=== PATIENT | male | born 1985 | race Two or more races ===

== ENCOUNTER 2020-09-19 15:30 | Inpatient (IN) | payer OTHER ==
[~2020-09-19] VITALS: Ht 167.6 cm; Wt 131.1 kg
[2020-09-19 16:48] LABS: Alanine Aminotransferase 57 U/L (16-61); Albumin 3.2 g/dL (3.4-5.0); Anion Gap 4 (5-15); Aspartate Aminotransferase 59 U/L (15-37); BUN/Creatinine Ratio 5.6; Blood Urea Nitrogen 5 mg/dL (7-18); Calcium 8.3 mg/dL (8.5-10.1); Carbon Dioxide 28 mmol/L (21-32); Chloride 106 mmol/L (98-107); GFR African American 123 mL/min; GFR Non-African American 101 mL/min; Glucose 128 mg/dL (74-106); Potassium 3.2 mmol/L (3.5-5.1); Sodium 138 mmol/L (136-145)
[2020-09-19 16:53] LABS: Alkaline Phosphatase 92 U/L (45-117); Bilirubin, Total 0.4 mg/dL (0.2-1.0); Lactic Acid w/Reflex 2.4 mmol/L (0.4-2.0); Total Protein 7.2 g/dL (6.4-8.2)
[2020-09-19 18:20] LABS: Basophils # (auto) 0 10 ^3/uL (0-0.2); Basophils % (auto) 0.7 % (0.0-2.0); Eosinophils # (auto) 0 10 ^3/uL (0-0.8); Hematocrit 42.1 % (41.0-53.0); Hemoglobin 14.5 g/dL (13.5-17.5); Lymphocytes # (auto) 0.8 10 ^3/uL (0.4-5.4); Lymphocytes % (auto) 17.5 % (10.0-50.0); Mean Corpuscular Hemoglobin 31.1 pg (28.0-32.0); Mean Corpuscular Hgb Conc. 34.6 g/dL (32.0-36.0); Mean Corpuscular Volume 89.9 fL (80.0-100.0); Monocytes # (auto) 0.4 10 ^3/uL (0-1.3); Monocytes % (auto) 7.8 % (0.0-12.0); Neutrophils # (auto) 3.4 10 ^3/uL (1.6-8.6); Nucleated Red Blood Cells % 0.1 %; Platelet Count (auto) 173 10^3/uL (140-450); Red Blood Cells 4.68 10^6/uL (4.5-5.90); Red Cell Distribution Width 14.2 % (11.8-14.3); White Blood Cell 4.6 10^3/uL (4.4-10.8)
[2020-09-19] MEDS ORDERED: AZITHROMYCIN 500MG/ 250ML 250 ML IV ONE (19:30)
[2020-09-19] MEDS ORDERED: DexAMETHasone SOD PHOS 10MG/1ML VIAL INJ IV ONE (19:30)
[2020-09-19] MEDS ORDERED: ACETAMINOPHEN 325 MG TAB PO ONE (19:30)
[2020-09-19] MEDS ORDERED: POTASSIUM CHL 20 Meq TABLET PO ONE (19:45)
[2020-09-20] MEDS ORDERED: NITROGLYCERIN 0.4 MG SL TAB SL PRN (00:15)
[2020-09-20] MEDS: HYDROcodone-ACET 5/325MG TAB PO PRN ×2 (04:37→13:30)
[2020-09-20] MEDS: SODIUM CHLOR 0.9% PF (SALINE LOCK) 10ML VIAL/SYR IV SCH ×2 (06:00→14:10)
[2020-09-20] MEDS: BUDESONIDE (INHALATION) 180 MCG IH IN SCH ×2 (09:43→19:51)
[2020-09-20] MEDS: ZINC SULFATE 220mg CAP or TAB PO SCH (10:23)
[2020-09-20] MEDS: ENOXAPARIN SOD 40 MG/0.4 ML SYRINGE SC SCH (10:23)
[2020-09-20] MEDS: ASCORBIC ACID 1,000 MG TAB PO SCH (10:23)
[2020-09-20] MEDS: MULTIPLE VITAMIN TAB PO SCH (10:23)
[2020-09-20] MEDS: CHOLECALCIFEROL (VITD3) 2,000 UNIT CAP/TAB PO SCH (10:23)
[2020-09-20] MEDS: DexAMETHasone SOD PHOS 10MG/1ML VIAL INJ IV SCH (10:23)
[2020-09-20] MEDS: DOXYCYCLINE 100MG/250ML 250 ML IV SCH (10:23)
[2020-09-20] MEDS ORDERED: diphenhdrAMINE HCL 50 MG/1 ML VL IV PRN (12:00)
[2020-09-20] MEDS ORDERED: FUROSEMIDE 40 MG/4 ML VIAL IV ONE (12:00)
[2020-09-20] MEDS ORDERED: POTASSIUM CHL 20 Meq TABLET PO ONE (12:00)
[2020-09-20] MEDS ORDERED: REMDESIVIR PER PHARMACY 0 ML IV SCH (12:00)
[2020-09-20] MEDS ORDERED: REMDESIVIR 200 MG in NS 210ml LOADING DOSE ADULT IV ONE (15:00)
[2020-09-20] MEDS ORDERED: ACETAMINOPHEN 650 mg PER 20.3 mL UD PO ONE (18:30)
[2020-09-20] MEDS ORDERED: methylPREDNISolone SOD SUCC 40 MG/ML VL IV ONE (18:30)
[2020-09-20] MEDS ORDERED: diphenhdrAMINE HCL 50 MG/1 ML VL IV ONE (18:30)
[2020-09-20] MEDS ORDERED: TOCILIZUMAB 400 MG in SODIUM CHL 0.9% 80 ML IV ONE (19:00)
[2020-09-21] MEDS: SODIUM CHLOR 0.9% PF (SALINE LOCK) 10ML VIAL/SYR IV SCH ×4 (00:12→22:57)
[2020-09-21] MEDS: HYDROcodone-ACET 5/325MG TAB PO PRN ×3 (00:12→22:58)
[2020-09-21] MEDS: ENOXAPARIN SOD 40 MG/0.4 ML SYRINGE SC SCH ×3 (00:12→21:57)
[2020-09-21] MEDS: DOXYCYCLINE 100MG/250ML 250 ML IV SCH ×3 (00:12→22:57)
[2020-09-21 07:39] LABS: Basophils # (auto) 0 10 ^3/uL (0-0.2); Basophils % (auto) 0.1 % (0.0-2.0); Eosinophils # (auto) 0 10 ^3/uL (0-0.8); Hemoglobin 14.7 g/dL (13.5-17.5); Lymphocytes # (auto) 0.8 10 ^3/uL (0.4-5.4); Lymphocytes % (auto) 19.1 % (10.0-50.0); Mean Corpuscular Hemoglobin 30.5 pg (28.0-32.0); Mean Corpuscular Hgb Conc. 34.1 g/dL (32.0-36.0); Mean Corpuscular Volume 89.4 fL (80.0-100.0); Monocytes # (auto) 0.7 10 ^3/uL (0-1.3); Monocytes % (auto) 15.9 % (0.0-12.0); Neutrophils # (auto) 2.9 10 ^3/uL (1.6-8.6); Neutrophils % (auto) 64.9 % (37.0-80.0); Nucleated Red Blood Cells % 0.1 %; Platelet Count (auto) 262 10^3/uL (140-450); Red Cell Distribution Width 14.1 % (11.8-14.3); White Blood Cell 4.4 10^3/uL (4.4-10.8)
[2020-09-21 08:01] LABS: Potassium 3.7 mmol/L (3.5-5.1)
[2020-09-21 08:08] LABS: BUN/Creatinine Ratio 14.6; Calcium 8.7 mg/dL (8.5-10.1)
[2020-09-21 08:11] LABS: Bilirubin, Total 0.5 mg/dL (0.2-1.0); Total Protein 7.4 g/dL (6.4-8.2)
[2020-09-21] MEDS: MULTIPLE VITAMIN TAB PO SCH (08:40)
[2020-09-21] MEDS: DexAMETHasone SOD PHOS 10MG/1ML VIAL INJ IV SCH (08:40)
[2020-09-21] MEDS: ZINC SULFATE 220mg CAP or TAB PO SCH (08:40)
[2020-09-21] MEDS: CHOLECALCIFEROL (VITD3) 2,000 UNIT CAP/TAB PO SCH (08:41)
[2020-09-21] MEDS: ASCORBIC ACID 1,000 MG TAB PO SCH (08:41)
[2020-09-21] MEDS: FUROSEMIDE 40 MG/4 ML VIAL IV SCH (09:52)
[2020-09-21] MEDS: POTASSIUM CHL 10 Meq TABLET PO SCH (09:52)
[2020-09-21] MEDS ORDERED: diphenhdrAMINE HCL 50 MG/1 ML VL IV ONE ×2 (10:00→20:00)
[2020-09-21] MEDS: BUDESONIDE (INHALATION) 180 MCG IH IN SCH ×2 (10:00→22:00)
[2020-09-21] MEDS ORDERED: ACETAMINOPHEN 650 mg PER 20.3 mL UD PO ONE ×2 (10:00→20:00)
[2020-09-21] MEDS ORDERED: methylPREDNISolone SOD SUCC 40 MG/ML VL IV ONE ×2 (10:00→20:00)
[2020-09-21] MEDS ORDERED: TOCILIZUMAB 400 MG in SODIUM CHL 0.9% 80 ML IV ONE ×2 (10:30→20:30)
[2020-09-21 16:00] VITALS: BP 114/75
[2020-09-21] MEDS: REMDESIVIR 100 MG in SODIUM CHL 0.9% 250 ML IV SCH (16:56)
[2020-09-22] VITALS: BP 132/79
[2020-09-22] MEDS: ALBUTEROL SULF HFA 90MCG INH 200DOSE IN PRN ×3 (01:28→19:30)
[2020-09-22] MEDS ORDERED: LORazepam 0.5 MG TAB PO PRN (06:30)
[2020-09-22] MEDS: SODIUM CHLOR 0.9% PF (SALINE LOCK) 10ML VIAL/SYR IV SCH ×3 (06:54→21:34)
[2020-09-22] MEDS: HYDROcodone-ACET 5/325MG TAB PO PRN ×4 (07:33→21:35)
[2020-09-22 08:00] VITALS: BP 145/87
[2020-09-22] MEDS: BUDESONIDE (INHALATION) 180 MCG IH IN SCH ×2 (08:10→18:30)
[2020-09-22 08:13] LABS: Albumin 2.9 g/dL (3.4-5.0); Calcium 8.4 mg/dL (8.5-10.1); Potassium 3.5 mmol/L (3.5-5.1)
[2020-09-22 08:17] LABS: BUN/Creatinine Ratio 16.9; Bilirubin, Total 0.5 mg/dL (0.2-1.0); Total Protein 7.2 g/dL (6.4-8.2)
[2020-09-22] MEDS: DexAMETHasone SOD PHOS 10MG/1ML VIAL INJ IV SCH (09:51)
[2020-09-22] MEDS: CHOLECALCIFEROL (VITD3) 2,000 UNIT CAP/TAB PO SCH (09:52)
[2020-09-22] MEDS: POTASSIUM CHL 10 Meq TABLET PO SCH (09:52)
[2020-09-22] MEDS: ENOXAPARIN SOD 40 MG/0.4 ML SYRINGE SC SCH ×2 (09:52→21:34)
[2020-09-22] MEDS: DOXYCYCLINE 100MG/250ML 250 ML IV SCH ×2 (09:52→21:34)
[2020-09-22] MEDS: FUROSEMIDE 40 MG/4 ML VIAL IV SCH (09:52)
[2020-09-22] MEDS: MULTIPLE VITAMIN TAB PO SCH (09:52)
[2020-09-22] MEDS: ASCORBIC ACID 1,000 MG TAB PO SCH (09:52)
[2020-09-22] MEDS: ZINC SULFATE 220mg CAP or TAB PO SCH (09:52)
[2020-09-22 16:14] VITALS: BP 141/89
[2020-09-22] MEDS: REMDESIVIR 100 MG in SODIUM CHL 0.9% 250 ML IV SCH (16:35)
[2020-09-22 17:21] VITALS: BP 135/78
[2020-09-23] VITALS (8 sets, daily range): BP systolic 107–157; BP diastolic 69–95
[2020-09-23] MEDS: HYDROcodone-ACET 5/325MG TAB PO PRN ×6 (01:40→21:09)
[2020-09-23] MEDS: SODIUM CHLOR 0.9% PF (SALINE LOCK) 10ML VIAL/SYR IV SCH ×3 (05:25→21:14)
[2020-09-23] MEDS: ALBUTEROL SULF HFA 90MCG INH 200DOSE IN PRN ×2 (06:55→20:15)
[2020-09-23] MEDS: BUDESONIDE (INHALATION) 180 MCG IH IN SCH ×2 (06:55→20:14)
[2020-09-23 08:48] LABS: Potassium 3.3 mmol/L (3.5-5.1)
[2020-09-23 09:00] LABS: BUN/Creatinine Ratio 21.7; Bilirubin, Total 0.6 mg/dL (0.2-1.0); CRP High Sensitivity 2.16 mg/dL (< 0.3); Calcium 8.5 mg/dL (8.5-10.1); Total Protein 6.9 g/dL (6.4-8.2)
[2020-09-23] MEDS: FUROSEMIDE 40 MG/4 ML VIAL IV SCH (09:18)
[2020-09-23] MEDS: DOXYCYCLINE 100MG/250ML 250 ML IV SCH ×2 (09:18→21:08)
[2020-09-23] MEDS: DexAMETHasone SOD PHOS 10MG/1ML VIAL INJ IV SCH (09:18)
[2020-09-23] MEDS: MULTIPLE VITAMIN TAB PO SCH (09:21)
[2020-09-23] MEDS: ASCORBIC ACID 1,000 MG TAB PO SCH (09:21)
[2020-09-23] MEDS: POTASSIUM CHL 10 Meq TABLET PO SCH (09:21)
[2020-09-23] MEDS: ZINC SULFATE 220mg CAP or TAB PO SCH (09:21)
[2020-09-23] MEDS: ENOXAPARIN SOD 40 MG/0.4 ML SYRINGE SC SCH ×2 (09:22→21:09)
[2020-09-23] MEDS: CHOLECALCIFEROL (VITD3) 2,000 UNIT CAP/TAB PO SCH (09:22)
[2020-09-23] MEDS ORDERED: POTASSIUM CHL 10 Meq TABLET PO ONE (11:15)
[2020-09-23] MEDS: REMDESIVIR 100 MG in SODIUM CHL 0.9% 250 ML IV SCH (15:25)
[2020-09-24] VITALS: BP 127/81
[2020-09-24] MEDS: HYDROcodone-ACET 5/325MG TAB PO PRN ×6 (01:10→21:05)
[2020-09-24] MEDS: guaiFENesin-DM 100/10mg/5ml SYR PO PRN ×4 (03:00→23:03)
[2020-09-24] MEDS: SODIUM CHLOR 0.9% PF (SALINE LOCK) 10ML VIAL/SYR IV SCH ×3 (06:00→22:23)
[2020-09-24] MEDS: ALBUTEROL SULF HFA 90MCG INH 200DOSE IN PRN ×2 (06:12→20:18)
[2020-09-24] MEDS: BUDESONIDE (INHALATION) 180 MCG IH IN SCH ×2 (06:12→20:18)
[2020-09-24 07:23] LABS: Basophils # (auto) 0 10 ^3/uL (0-0.2); Basophils % (auto) 0.1 % (0.0-2.0); Eosinophils # (auto) 0 10 ^3/uL (0-0.8); Eosinophils % (auto) 0.1 % (0.0-7.0); Hemoglobin 14.4 g/dL (13.5-17.5); Lymphocytes # (auto) 2.5 10 ^3/uL (0.4-5.4); Lymphocytes % (auto) 24.6 % (10.0-50.0); Mean Corpuscular Hemoglobin 30.4 pg (28.0-32.0); Mean Corpuscular Hgb Conc. 34.3 g/dL (32.0-36.0); Mean Corpuscular Volume 88.6 fL (80.0-100.0); Monocytes # (auto) 1.4 10 ^3/uL (0-1.3); Monocytes % (auto) 14.1 % (0.0-12.0); Neutrophils # (auto) 6.1 10 ^3/uL (1.6-8.6); Neutrophils % (auto) 61.1 % (37.0-80.0); Nucleated Red Blood Cells % 0.1 %; Platelet Count (auto) 424 10^3/uL (140-450); Red Blood Cells 4.74 10^6/uL (4.5-5.90); Red Cell Distribution Width 13.8 % (11.8-14.3)
[2020-09-24 08:00] VITALS: BP 148/68
[2020-09-24 08:20] LABS: Albumin 3.2 g/dL (3.4-5.0); BUN/Creatinine Ratio 23.1; Bilirubin, Total 0.6 mg/dL (0.2-1.0); CRP High Sensitivity 1.15 mg/dL (< 0.3); Calcium 8.4 mg/dL (8.5-10.1); Potassium 3.3 mmol/L (3.5-5.1); Total Protein 6.8 g/dL (6.4-8.2)
[2020-09-24] MEDS: ENOXAPARIN SOD 40 MG/0.4 ML SYRINGE SC SCH ×2 (09:06→22:23)
[2020-09-24] MEDS: DexAMETHasone SOD PHOS 10MG/1ML VIAL INJ IV SCH (09:06)
[2020-09-24] MEDS: MULTIPLE VITAMIN TAB PO SCH (09:07)
[2020-09-24] MEDS: CHOLECALCIFEROL (VITD3) 2,000 UNIT CAP/TAB PO SCH (09:07)
[2020-09-24] MEDS: ZINC SULFATE 220mg CAP or TAB PO SCH (09:07)
[2020-09-24] MEDS: ASCORBIC ACID 1,000 MG TAB PO SCH (09:08)
[2020-09-24] MEDS: FUROSEMIDE 40 MG/4 ML VIAL IV SCH (09:09)
[2020-09-24] MEDS: DOXYCYCLINE 100MG/250ML 250 ML IV SCH ×2 (09:15→22:24)
[2020-09-24] MEDS ORDERED: POTASSIUM CHL 10 Meq TABLET PO SCH (10:00)
[2020-09-24] MEDS: POTASSIUM CHL 10 Meq TABLET PO SCH ×2 (12:36→22:23)
[2020-09-24] MEDS: REMDESIVIR 100 MG in SODIUM CHL 0.9% 250 ML IV SCH (15:54)
[2020-09-24 16:00] VITALS: BP 153/76
[2020-09-25] VITALS: BP 110/66
[2020-09-25] MEDS: HYDROcodone-ACET 5/325MG TAB PO PRN ×6 (01:07→21:38)
[2020-09-25] MEDS: ACETAMINOPHEN 500 MG TAB PO PRN ×2 (03:54→23:16)
[2020-09-25] MEDS: guaiFENesin-DM 100/10mg/5ml SYR PO PRN ×2 (05:35→13:27)
[2020-09-25] MEDS: SODIUM CHLOR 0.9% PF (SALINE LOCK) 10ML VIAL/SYR IV SCH ×3 (05:35→21:36)
[2020-09-25] MEDS: BUDESONIDE (INHALATION) 180 MCG IH IN SCH ×2 (06:50→07:50)
[2020-09-25 08:00] VITALS: BP 120/60
[2020-09-25] MEDS: ENOXAPARIN SOD 40 MG/0.4 ML SYRINGE SC SCH ×2 (09:07→21:37)
[2020-09-25] MEDS: ZINC SULFATE 220mg CAP or TAB PO SCH (09:08)
[2020-09-25] MEDS: MULTIPLE VITAMIN TAB PO SCH (09:08)
[2020-09-25] MEDS: ASCORBIC ACID 1,000 MG TAB PO SCH (09:08)
[2020-09-25] MEDS: DexAMETHasone SOD PHOS 10MG/1ML VIAL INJ IV SCH (09:08)
[2020-09-25] MEDS: POTASSIUM CHL 10 Meq TABLET PO SCH ×2 (09:08→21:37)
[2020-09-25] MEDS: FUROSEMIDE 40 MG/4 ML VIAL IV SCH (09:09)
[2020-09-25] MEDS: CHOLECALCIFEROL (VITD3) 2,000 UNIT CAP/TAB PO SCH (09:10)
[2020-09-25 16:00] VITALS: BP 113/63
[2020-09-25] MEDS ORDERED: FUROSEMIDE 40 MG/4 ML VIAL IV ONE (16:00)
[2020-09-25] MEDS: LORazepam 0.5 MG TAB PO PRN (20:24)
[2020-09-26] VITALS: BP 140/88
[2020-09-26] MEDS: MORPHINE SULF INJ 2 MG/ML SYRINGE 1ML IV PRN ×5 (01:20→20:08)
[2020-09-26] MEDS: HYDROcodone-ACET 5/325MG TAB PO PRN ×3 (03:33→21:32)
[2020-09-26] MEDS: SODIUM CHLOR 0.9% PF (SALINE LOCK) 10ML VIAL/SYR IV SCH ×3 (05:52→21:02)
[2020-09-26] MEDS: guaiFENesin-DM 100/10mg/5ml SYR PO PRN ×2 (06:15→14:11)
[2020-09-26 07:52] LABS: Basophils # (auto) 0 10 ^3/uL (0-0.2); Basophils % (auto) 0.2 % (0.0-2.0); Eosinophils # (auto) 0.2 10 ^3/uL (0-0.8); Eosinophils % (auto) 1.5 % (0.0-7.0); Hematocrit 42.6 % (41.0-53.0); Hemoglobin 14.8 g/dL (13.5-17.5); Lymphocytes # (auto) 1.4 10 ^3/uL (0.4-5.4); Mean Corpuscular Hemoglobin 30.9 pg (28.0-32.0); Mean Corpuscular Hgb Conc. 34.7 g/dL (32.0-36.0); Mean Corpuscular Volume 88.9 fL (80.0-100.0); Monocytes # (auto) 1.1 10 ^3/uL (0-1.3); Monocytes % (auto) 11.1 % (0.0-12.0); Neutrophils # (auto) 7.2 10 ^3/uL (1.6-8.6); Neutrophils % (auto) 73.2 % (37.0-80.0); Nucleated Red Blood Cells % 0.1 %; Platelet Count (auto) 449 10^3/uL (140-450); Red Blood Cells 4.79 10^6/uL (4.5-5.90); Red Cell Distribution Width 14.2 % (11.8-14.3); White Blood Cell 9.8 10^3/uL (4.4-10.8)
[2020-09-26 08:00] VITALS: BP 118/76
[2020-09-26] MEDS: BUDESONIDE (INHALATION) 180 MCG IH IN SCH ×2 (08:00→19:22)
[2020-09-26 08:03] LABS: Albumin 3.4 g/dL (3.4-5.0); Calcium 8.7 mg/dL (8.5-10.1); Potassium 3.9 mmol/L (3.5-5.1)
[2020-09-26 08:06] LABS: Bilirubin, Total 0.6 mg/dL (0.2-1.0); Total Protein 6.9 g/dL (6.4-8.2)
[2020-09-26] MEDS: ENOXAPARIN SOD 40 MG/0.4 ML SYRINGE SC SCH ×2 (09:02→21:31)
[2020-09-26] MEDS: DexAMETHasone SOD PHOS 10MG/1ML VIAL INJ IV SCH (09:02)
[2020-09-26] MEDS: POTASSIUM CHL 10 Meq TABLET PO SCH ×2 (09:03→21:31)
[2020-09-26] MEDS: FUROSEMIDE 40 MG/4 ML VIAL IV SCH (09:03)
[2020-09-26] MEDS: MULTIPLE VITAMIN TAB PO SCH (09:04)
[2020-09-26] MEDS: ASCORBIC ACID 1,000 MG TAB PO SCH (09:04)
[2020-09-26] MEDS: CHOLECALCIFEROL (VITD3) 2,000 UNIT CAP/TAB PO SCH (09:04)
[2020-09-26] MEDS: ZINC SULFATE 220mg CAP or TAB PO SCH (09:04)
[2020-09-26 16:00] VITALS: BP 121/68
[2020-09-26] MEDS ORDERED: BACLOFEN 10 MG TAB PO ONE (17:15)
[2020-09-26] MEDS: ALBUTEROL SULF HFA 90MCG INH 200DOSE IN PRN (19:20)
[2020-09-27] VITALS: BP 97/60
[2020-09-27] MEDS: MORPHINE SULF INJ 2 MG/ML SYRINGE 1ML IV PRN ×4 (00:17→19:45)
[2020-09-27] MEDS: HYDROcodone-ACET 5/325MG TAB PO PRN ×2 (02:14→16:29)
[2020-09-27] MEDS: SODIUM CHLOR 0.9% PF (SALINE LOCK) 10ML VIAL/SYR IV SCH ×3 (05:18→21:06)
[2020-09-27] MEDS: ALBUTEROL SULF HFA 90MCG INH 200DOSE IN PRN ×2 (06:40→18:30)
[2020-09-27] MEDS: BUDESONIDE (INHALATION) 180 MCG IH IN SCH ×2 (06:40→18:30)
[2020-09-27 08:00] VITALS: BP 133/8
[2020-09-27] MEDS: LORazepam 0.5 MG TAB PO PRN (08:03)
[2020-09-27] MEDS: DexAMETHasone SOD PHOS 10MG/1ML VIAL INJ IV SCH (10:30)
[2020-09-27] MEDS: ASCORBIC ACID 1,000 MG TAB PO SCH (10:30)
[2020-09-27] MEDS: POTASSIUM CHL 10 Meq TABLET PO SCH (10:31)
[2020-09-27] MEDS: MULTIPLE VITAMIN TAB PO SCH (10:31)
[2020-09-27] MEDS: ZINC SULFATE 220mg CAP or TAB PO SCH (10:31)
[2020-09-27] MEDS: FUROSEMIDE 40 MG/4 ML VIAL IV SCH (10:32)
[2020-09-27] MEDS: ENOXAPARIN SOD 40 MG/0.4 ML SYRINGE SC SCH ×2 (10:32→21:15)
[2020-09-27] MEDS: CHOLECALCIFEROL (VITD3) 2,000 UNIT CAP/TAB PO SCH (10:32)
[2020-09-27] MEDS: BACLOFEN 10 MG TAB PO PRN (10:41)
[2020-09-27 15:54] VITALS: BP 136/81
[2020-09-27] MEDS: POTASSIUM CHL 20 Meq TABLET PO SCH (21:15)
[2020-09-27] MEDS: LORazepam 2MG/ML-1ML VIAL IV PRN (21:52)
[2020-09-28] VITALS: BP 122/51
[2020-09-28] MEDS: MORPHINE SULF INJ 2 MG/ML SYRINGE 1ML IV PRN ×4 (00:59→19:53)
[2020-09-28] MEDS: LORazepam 0.5 MG TAB PO PRN ×2 (02:20→23:19)
[2020-09-28] MEDS: HYDROcodone-ACET 5/325MG TAB PO PRN ×3 (05:19→16:29)
[2020-09-28] MEDS: SODIUM CHLOR 0.9% PF (SALINE LOCK) 10ML VIAL/SYR IV SCH ×3 (05:20→19:55)
[2020-09-28 07:31] LABS: Eosinophils # (auto) 0.3 10 ^3/uL (0-0.8); Monocytes # (auto) 1.2 10 ^3/uL (0-1.3); Neutrophils # (auto) 8.1 10 ^3/uL (1.6-8.6); Nucleated Red Blood Cells % 0.1 %; Red Cell Distribution Width 14.3 % (11.8-14.3)
[2020-09-28 07:34] LABS: Basophils # (auto) 0 10 ^3/uL (0-0.2); Basophils % (auto) 0.2 % (0.0-2.0); Eosinophils % (auto) 2.6 % (0.0-7.0); Hematocrit 42.8 % (41.0-53.0); Hemoglobin 14.4 g/dL (13.5-17.5); Lymphocytes # (auto) 1.5 10 ^3/uL (0.4-5.4); Lymphocytes % (auto) 13.3 % (10.0-50.0); Mean Corpuscular Hemoglobin 30.1 pg (28.0-32.0); Mean Corpuscular Hgb Conc. 33.7 g/dL (32.0-36.0); Mean Corpuscular Volume 89.3 fL (80.0-100.0); Neutrophils % (auto) 72.9 % (37.0-80.0); Red Blood Cells 4.79 10^6/uL (4.5-5.90); White Blood Cell 11.1 10^3/uL (4.4-10.8)
[2020-09-28 07:45] LABS: INR 1.07 (0.9-1.15); Partial Thromboplastin Time 25.4 sec (23.0-31.2)
[2020-09-28 07:56] LABS: Albumin 3.6 g/dL (3.4-5.0); Calcium 8.9 mg/dL (8.5-10.1); Magnesium 2.5 mg/dL (1.6-2.6)
[2020-09-28 08:00] VITALS: BP 105/70
[2020-09-28 08:16] LABS: BUN/Creatinine Ratio 27.8; Bilirubin, Total 0.7 mg/dL (0.2-1.0); Total Protein 6.9 g/dL (6.4-8.2)
[2020-09-28 08:22] LABS: Platelet Count (auto) 459 10^3/uL (140-450)
[2020-09-28] MEDS: ENOXAPARIN SOD 40 MG/0.4 ML SYRINGE SC SCH ×2 (08:50→19:52)
[2020-09-28] MEDS: ZINC SULFATE 220mg CAP or TAB PO SCH (08:50)
[2020-09-28] MEDS: ASCORBIC ACID 1,000 MG TAB PO SCH (08:50)
[2020-09-28] MEDS: POTASSIUM CHL 20 Meq TABLET PO SCH ×2 (08:50→19:52)
[2020-09-28] MEDS: DexAMETHasone SOD PHOS 10MG/1ML VIAL INJ IV SCH (08:51)
[2020-09-28] MEDS: CHOLECALCIFEROL (VITD3) 2,000 UNIT CAP/TAB PO SCH (08:51)
[2020-09-28] MEDS: MULTIPLE VITAMIN TAB PO SCH (08:51)
[2020-09-28] MEDS: FUROSEMIDE 40 MG/4 ML VIAL IV SCH (09:01)
[2020-09-28] MEDS: BUDESONIDE (INHALATION) 180 MCG IH IN SCH ×3 (09:43→19:26)
[2020-09-28] MEDS: ALBUTEROL SULF HFA 90MCG INH 200DOSE IN PRN ×2 (13:16→19:25)
[2020-09-28 16:00] VITALS: BP 146/74
[2020-09-28] MEDS: guaiFENesin-DM 100/10mg/5ml SYR PO PRN (16:41)
[2020-09-28 19:26] VITALS: BP 146/74
[2020-09-29] VITALS: BP 133/68
[2020-09-29] MEDS: MORPHINE SULF INJ 2 MG/ML SYRINGE 1ML IV PRN ×4 (00:08→22:09)
[2020-09-29 02:40] VITALS: BP 133/68
[2020-09-29] MEDS: HYDROcodone-ACET 5/325MG TAB PO PRN ×3 (02:53→19:44)
[2020-09-29] MEDS: SODIUM CHLOR 0.9% PF (SALINE LOCK) 10ML VIAL/SYR IV SCH ×3 (04:42→22:06)
[2020-09-29] MEDS: BUDESONIDE (INHALATION) 180 MCG IH IN SCH ×2 (07:28→20:57)
[2020-09-29] MEDS: ALBUTEROL SULF HFA 90MCG INH 200DOSE IN PRN ×2 (07:28→20:57)
[2020-09-29 08:00] VITALS: BP 128/70
[2020-09-29] MEDS: FUROSEMIDE 40 MG/4 ML VIAL IV SCH (08:23)
[2020-09-29] MEDS: CHOLECALCIFEROL (VITD3) 2,000 UNIT CAP/TAB PO SCH (08:23)
[2020-09-29] MEDS: MULTIPLE VITAMIN TAB PO SCH (08:23)
[2020-09-29] MEDS: ENOXAPARIN SOD 40 MG/0.4 ML SYRINGE SC SCH ×2 (08:23→22:09)
[2020-09-29] MEDS: ZINC SULFATE 220mg CAP or TAB PO SCH (08:23)
[2020-09-29] MEDS: POTASSIUM CHL 20 Meq TABLET PO SCH ×2 (08:23→22:09)
[2020-09-29] MEDS: ASCORBIC ACID 1,000 MG TAB PO SCH (08:23)
[2020-09-29] MEDS: DexAMETHasone SOD PHOS 10MG/1ML VIAL INJ IV SCH (08:23)
[2020-09-29 16:00] VITALS: BP 108/68
[2020-09-29] MEDS: DOCUSATE SOD 100 MG CAP PO PRN (16:59)
[2020-09-30 00:20] VITALS: BP 127/66
[2020-09-30] MEDS: MORPHINE SULF INJ 2 MG/ML SYRINGE 1ML IV PRN ×3 (02:34→20:59)
[2020-09-30] MEDS: guaiFENesin-DM 100/10mg/5ml SYR PO PRN (02:35)
[2020-09-30] MEDS: SODIUM CHLOR 0.9% PF (SALINE LOCK) 10ML VIAL/SYR IV SCH ×3 (06:00→21:59)
[2020-09-30] MEDS: ALBUTEROL SULF HFA 90MCG INH 200DOSE IN PRN (06:43)
[2020-09-30] MEDS: BUDESONIDE (INHALATION) 180 MCG IH IN SCH ×2 (06:43→21:07)
[2020-09-30 08:00] VITALS: BP 107/54
[2020-09-30] MEDS: MULTIPLE VITAMIN TAB PO SCH (08:30)
[2020-09-30] MEDS: ASCORBIC ACID 1,000 MG TAB PO SCH (08:30)
[2020-09-30] MEDS: ZINC SULFATE 220mg CAP or TAB PO SCH (08:31)
[2020-09-30] MEDS: CHOLECALCIFEROL (VITD3) 2,000 UNIT CAP/TAB PO SCH (08:31)
[2020-09-30] MEDS: ENOXAPARIN SOD 40 MG/0.4 ML SYRINGE SC SCH ×2 (08:31→21:59)
[2020-09-30] MEDS: DOCUSATE SOD 100 MG CAP PO PRN (08:31)
[2020-09-30] MEDS: DexAMETHasone SOD PHOS 10MG/1ML VIAL INJ IV SCH (08:31)
[2020-09-30] MEDS: POTASSIUM CHL 20 Meq TABLET PO SCH (08:31)
[2020-09-30] MEDS ORDERED: LACTULOSE 20Gm/30ML SOLN PO ONE (15:15)
[2020-09-30] MEDS: guaiFENesin 200 MG/10 ML UD PO PRN ×2 (15:27→22:00)
[2020-09-30 15:57] VITALS: BP 118/72
[2020-09-30] MEDS: LACTULOSE 20Gm/30ML SOLN PO SCH (21:59)
[2020-09-30] MEDS: BACLOFEN 10 MG TAB PO PRN (23:00)
[2020-10-01] VITALS: BP 137/83
[2020-10-01] MEDS: MORPHINE SULF INJ 2 MG/ML SYRINGE 1ML IV PRN ×4 (01:08→18:25)
[2020-10-01] MEDS: guaiFENesin 200 MG/10 ML UD PO PRN ×3 (03:09→20:20)
[2020-10-01] MEDS: ALBUTEROL SULF HFA 90MCG INH 200DOSE IN PRN ×2 (06:20→20:02)
[2020-10-01] MEDS: BUDESONIDE (INHALATION) 180 MCG IH IN SCH ×2 (06:20→20:02)
[2020-10-01 06:43] LABS: Basophils # (auto) 0.1 10 ^3/uL (0-0.2); Basophils % (auto) 0.6 % (0.0-2.0); Eosinophils # (auto) 0.2 10 ^3/uL (0-0.8); Eosinophils % (auto) 1.4 % (0.0-7.0); Hemoglobin 14.1 g/dL (13.5-17.5); Lymphocytes # (auto) 2.3 10 ^3/uL (0.4-5.4); Lymphocytes % (auto) 17.3 % (10.0-50.0); Mean Corpuscular Hemoglobin 30.4 pg (28.0-32.0); Mean Corpuscular Hgb Conc. 33.6 g/dL (32.0-36.0); Mean Corpuscular Volume 90.6 fL (80.0-100.0); Monocytes # (auto) 1.5 10 ^3/uL (0-1.3); Monocytes % (auto) 11.7 % (0.0-12.0); Neutrophils # (auto) 9.1 10 ^3/uL (1.6-8.6); Platelet Count (auto) 389 10^3/uL (140-450); Red Blood Cells 4.64 10^6/uL (4.5-5.90); Red Cell Distribution Width 14.5 % (11.8-14.3); White Blood Cell 13.2 10^3/uL (4.4-10.8)
[2020-10-01] MEDS: SODIUM CHLOR 0.9% PF (SALINE LOCK) 10ML VIAL/SYR IV SCH ×3 (06:56→21:26)
[2020-10-01 07:20] LABS: Albumin 3.6 g/dL (3.4-5.0); Calcium 8.7 mg/dL (8.5-10.1); Potassium 4.1 mmol/L (3.5-5.1)
[2020-10-01 07:23] LABS: BUN/Creatinine Ratio 25.6
[2020-10-01 07:25] LABS: Bilirubin, Total 0.5 mg/dL (0.2-1.0); Total Protein 6.9 g/dL (6.4-8.2)
[2020-10-01 08:00] VITALS: BP 122/62
[2020-10-01] MEDS: ZINC SULFATE 220mg CAP or TAB PO SCH (08:41)
[2020-10-01] MEDS: MULTIPLE VITAMIN TAB PO SCH (08:41)
[2020-10-01] MEDS: CHOLECALCIFEROL (VITD3) 2,000 UNIT CAP/TAB PO SCH (08:41)
[2020-10-01] MEDS: LACTULOSE 20Gm/30ML SOLN PO SCH (08:41)
[2020-10-01] MEDS: ASCORBIC ACID 1,000 MG TAB PO SCH (08:41)
[2020-10-01] MEDS: ENOXAPARIN SOD 40 MG/0.4 ML SYRINGE SC SCH ×2 (08:41→21:27)
[2020-10-01] MEDS: DexAMETHasone SOD PHOS 10MG/1ML VIAL INJ IV SCH (08:46)
[2020-10-01] MEDS ORDERED: ROCURONIUM 10MG/ML 10ML VIAL IV ONE (13:26)
[2020-10-01] MEDS ORDERED: ETOMIDATE (2MG/ML) 20ML VIAL IV ONE (13:26)
[2020-10-01] MEDS ORDERED: SUCCINYLCHOLINE CHLORIDE 20 MG/ML 10ML VIAL IV ONE (13:26)
[2020-10-01 16:00] VITALS: BP 130/80
[2020-10-01] MEDS: LACTULOSE 20Gm/30ML SOLN PO PRN (21:27)
[2020-10-01] MEDS: LORazepam 2MG/ML-1ML VIAL IV PRN (21:43)
[2020-10-02 00:03] VITALS: BP 138/79
[2020-10-02] MEDS: MORPHINE SULF INJ 2 MG/ML SYRINGE 1ML IV PRN ×4 (01:07→21:56)
[2020-10-02] MEDS: guaiFENesin 200 MG/10 ML UD PO PRN ×2 (04:15→10:10)
[2020-10-02] MEDS: HYDROcodone-ACET 5/325MG TAB PO PRN ×2 (04:16→18:54)
[2020-10-02] MEDS: SODIUM CHLOR 0.9% PF (SALINE LOCK) 10ML VIAL/SYR IV SCH ×3 (05:29→21:55)
[2020-10-02] MEDS: BUDESONIDE (INHALATION) 180 MCG IH IN SCH ×2 (06:55→19:20)
[2020-10-02 08:17] VITALS: BP 129/84
[2020-10-02] MEDS: DexAMETHasone SOD PHOS 10MG/1ML VIAL INJ IV SCH (08:33)
[2020-10-02] MEDS: ENOXAPARIN SOD 40 MG/0.4 ML SYRINGE SC SCH ×2 (08:33→21:55)
[2020-10-02] MEDS: CHOLECALCIFEROL (VITD3) 2,000 UNIT CAP/TAB PO SCH (08:34)
[2020-10-02] MEDS: ASCORBIC ACID 1,000 MG TAB PO SCH (08:34)
[2020-10-02] MEDS: MULTIPLE VITAMIN TAB PO SCH (08:34)
[2020-10-02] MEDS: ZINC SULFATE 220mg CAP or TAB PO SCH (08:34)
[2020-10-02] MEDS ORDERED: FUROSEMIDE 20 MG TAB PO ONE (14:45)
[2020-10-02 16:00] VITALS: BP 116/68
[2020-10-02] MEDS: LACTULOSE 20Gm/30ML SOLN PO PRN (16:16)
[2020-10-03] VITALS: BP 156/79
[2020-10-03] MEDS: guaiFENesin 200 MG/10 ML UD PO PRN ×3 (01:02→21:42)
[2020-10-03] MEDS: LORazepam 0.5 MG TAB PO PRN (01:02)
[2020-10-03] MEDS: MORPHINE SULF INJ 2 MG/ML SYRINGE 1ML IV PRN ×4 (02:44→20:22)
[2020-10-03] MEDS: HYDROcodone-ACET 5/325MG TAB PO PRN (04:39)
[2020-10-03] MEDS: SODIUM CHLOR 0.9% PF (SALINE LOCK) 10ML VIAL/SYR IV SCH ×3 (06:00→21:42)
[2020-10-03] MEDS: BUDESONIDE (INHALATION) 180 MCG IH IN SCH ×2 (06:40→18:48)
[2020-10-03 08:00] VITALS: BP 120/76
[2020-10-03] MEDS ORDERED: FUROSEMIDE 20 MG TAB PO SCH (10:00)
[2020-10-03] MEDS: DexAMETHasone SOD PHOS 10MG/1ML VIAL INJ IV SCH (10:19)
[2020-10-03] MEDS: ZINC SULFATE 220mg CAP or TAB PO SCH (10:19)
[2020-10-03] MEDS: ENOXAPARIN SOD 40 MG/0.4 ML SYRINGE SC SCH ×2 (10:21→21:42)
[2020-10-03] MEDS: CHOLECALCIFEROL (VITD3) 2,000 UNIT CAP/TAB PO SCH (10:21)
[2020-10-03] MEDS: MULTIPLE VITAMIN TAB PO SCH (10:21)
[2020-10-03] MEDS: ASCORBIC ACID 1,000 MG TAB PO SCH (10:21)
[2020-10-03 10:54] LABS: Basophils # (auto) 0.1 10 ^3/uL (0-0.2); Eosinophils # (auto) 0.2 10 ^3/uL (0-0.8); Eosinophils % (auto) 1.4 % (0.0-7.0); Hematocrit 40.4 % (41.0-53.0); Hemoglobin 13.8 g/dL (13.5-17.5); Lymphocytes # (auto) 1.4 10 ^3/uL (0.4-5.4); Lymphocytes % (auto) 9.4 % (10.0-50.0); Mean Corpuscular Hemoglobin 30.5 pg (28.0-32.0); Mean Corpuscular Hgb Conc. 34.1 g/dL (32.0-36.0); Mean Corpuscular Volume 89.5 fL (80.0-100.0); Monocytes % (auto) 6.3 % (0.0-12.0); Neutrophils # (auto) 12.5 10 ^3/uL (1.6-8.6); Neutrophils % (auto) 81.9 % (37.0-80.0); Nucleated Red Blood Cells % 0.1 %; Platelet Count (auto) 376 10^3/uL (140-450); Red Blood Cells 4.52 10^6/uL (4.5-5.90); Red Cell Distribution Width 14.3 % (11.8-14.3); White Blood Cell 15.2 10^3/uL (4.4-10.8)
[2020-10-03 11:09] LABS: Potassium 3.9 mmol/L (3.5-5.1)
[2020-10-03 11:14] LABS: BUN/Creatinine Ratio 24.5; Calcium 8.6 mg/dL (8.5-10.1)
[2020-10-03] MEDS ORDERED: FUROSEMIDE 40 MG/4 ML VIAL IV ONE (11:45)
[2020-10-03] MEDS ORDERED: diphenhdrAMINE HCL 50 MG/1 ML VL IV PRN (13:45)
[2020-10-03 16:00] VITALS: BP 136/75
[2020-10-03] MEDS: LACTULOSE 20Gm/30ML SOLN PO PRN (18:00)
[2020-10-03 21:38] VITALS: BP 159/94
[2020-10-03 21:53] VITALS: BP 156/76
[2020-10-03] MEDS ORDERED: ZOLPIDEM TARTRATE 5 MG TAB PO ONE (22:00)
[2020-10-03 23:51] VITALS: BP 154/86
[2020-10-04 00:20] VITALS: BP 154/86
[2020-10-04] MEDS: LORazepam 0.5 MG TAB PO PRN ×2 (00:44→21:45)
[2020-10-04] MEDS: guaiFENesin 200 MG/10 ML UD PO PRN ×4 (01:48→21:45)
[2020-10-04] MEDS: SODIUM CHLOR 0.9% PF (SALINE LOCK) 10ML VIAL/SYR IV SCH ×3 (05:40→21:44)
[2020-10-04] MEDS: MORPHINE SULF INJ 2 MG/ML SYRINGE 1ML IV PRN ×4 (05:40→20:37)
[2020-10-04 07:30] VITALS: BP 137/72
[2020-10-04] MEDS: ALBUTEROL SULF HFA 90MCG INH 200DOSE IN PRN ×2 (07:30→20:10)
[2020-10-04] MEDS: BUDESONIDE (INHALATION) 180 MCG IH IN SCH ×2 (07:30→20:10)
[2020-10-04 08:00] VITALS: BP 137/72
[2020-10-04] MEDS: DexAMETHasone SOD PHOS 10MG/1ML VIAL INJ IV SCH (09:57)
[2020-10-04] MEDS: POTASSIUM CHL 10 Meq TABLET PO SCH (09:57)
[2020-10-04] MEDS: ASCORBIC ACID 1,000 MG TAB PO SCH (09:57)
[2020-10-04] MEDS: CHOLECALCIFEROL (VITD3) 2,000 UNIT CAP/TAB PO SCH (09:57)
[2020-10-04] MEDS: ZINC SULFATE 220mg CAP or TAB PO SCH (09:57)
[2020-10-04] MEDS: ENOXAPARIN SOD 40 MG/0.4 ML SYRINGE SC SCH ×2 (09:58→21:44)
[2020-10-04] MEDS: FUROSEMIDE 40 MG/4 ML VIAL IV SCH (09:58)
[2020-10-04] MEDS: MULTIPLE VITAMIN TAB PO SCH (09:58)
[2020-10-04 16:00] VITALS: BP 132/78
[2020-10-05 00:13] VITALS: BP 130/83
[2020-10-05] MEDS: MORPHINE SULF INJ 2 MG/ML SYRINGE 1ML IV PRN ×4 (03:20→22:23)
[2020-10-05] MEDS: LORazepam 0.5 MG TAB PO PRN (03:21)
[2020-10-05] MEDS: guaiFENesin 200 MG/10 ML UD PO PRN ×3 (03:21→22:23)
[2020-10-05] MEDS: SODIUM CHLOR 0.9% PF (SALINE LOCK) 10ML VIAL/SYR IV SCH ×3 (06:11→22:22)
[2020-10-05] MEDS: ALBUTEROL SULF HFA 90MCG INH 200DOSE IN PRN ×2 (06:20→20:11)
[2020-10-05] MEDS: BUDESONIDE (INHALATION) 180 MCG IH IN SCH ×2 (06:20→20:11)
[2020-10-05 07:51] LABS: Basophils # (auto) 0.1 10 ^3/uL (0-0.2); Basophils % (auto) 0.6 % (0.0-2.0); Eosinophils # (auto) 0.2 10 ^3/uL (0-0.8); Eosinophils % (auto) 1.9 % (0.0-7.0); Hematocrit 41.6 % (41.0-53.0); Hemoglobin 14.1 g/dL (13.5-17.5); Lymphocytes # (auto) 2.2 10 ^3/uL (0.4-5.4); Lymphocytes % (auto) 17.6 % (10.0-50.0); Mean Corpuscular Hemoglobin 30.6 pg (28.0-32.0); Mean Corpuscular Hgb Conc. 33.8 g/dL (32.0-36.0); Mean Corpuscular Volume 90.5 fL (80.0-100.0); Monocytes # (auto) 1.5 10 ^3/uL (0-1.3); Monocytes % (auto) 12.2 % (0.0-12.0); Neutrophils # (auto) 8.6 10 ^3/uL (1.6-8.6); Neutrophils % (auto) 67.7 % (37.0-80.0); Nucleated Red Blood Cells % 0.1 %; Platelet Count (auto) 348 10^3/uL (140-450); Red Cell Distribution Width 14.5 % (11.8-14.3); White Blood Cell 12.7 10^3/uL (4.4-10.8)
[2020-10-05 08:09] LABS: Albumin 3.6 g/dL (3.4-5.0); Calcium 8.9 mg/dL (8.5-10.1); Potassium 4.1 mmol/L (3.5-5.1)
[2020-10-05 08:12] LABS: BUN/Creatinine Ratio 27.7; Bilirubin, Total 0.6 mg/dL (0.2-1.0); Total Protein 7.4 g/dL (6.4-8.2)
[2020-10-05] MEDS: DexAMETHasone SOD PHOS 10MG/1ML VIAL INJ IV SCH (08:42)
[2020-10-05] MEDS: ASCORBIC ACID 1,000 MG TAB PO SCH (08:43)
[2020-10-05] MEDS: POTASSIUM CHL 10 Meq TABLET PO SCH (08:43)
[2020-10-05] MEDS: MULTIPLE VITAMIN TAB PO SCH (08:43)
[2020-10-05] MEDS: ZINC SULFATE 220mg CAP or TAB PO SCH (08:43)
[2020-10-05] MEDS: FUROSEMIDE 40 MG/4 ML VIAL IV SCH (08:43)
[2020-10-05] MEDS: ENOXAPARIN SOD 40 MG/0.4 ML SYRINGE SC SCH ×2 (08:44→22:22)
[2020-10-05] MEDS: CHOLECALCIFEROL (VITD3) 2,000 UNIT CAP/TAB PO SCH (08:44)
[2020-10-05 16:00] VITALS: BP 126/72
[2020-10-05 17:12] VITALS: BP 126/72
[2020-10-05 18:30] VITALS: BP 126/72
[2020-10-05] MEDS: LACTULOSE 20Gm/30ML SOLN PO PRN (22:23)
[2020-10-05] MEDS: ZOLPIDEM TARTRATE 5 MG TAB PO PRN (23:50)
[2020-10-06] VITALS: BP 120/75
[2020-10-06 02:20] VITALS: BP 120/75
[2020-10-06] MEDS: guaiFENesin 200 MG/10 ML UD PO PRN ×2 (02:35→20:55)
[2020-10-06] MEDS: LORazepam 0.5 MG TAB PO PRN (02:35)
[2020-10-06] MEDS: MORPHINE SULF INJ 2 MG/ML SYRINGE 1ML IV PRN ×4 (05:11→20:55)
[2020-10-06] MEDS: SODIUM CHLOR 0.9% PF (SALINE LOCK) 10ML VIAL/SYR IV SCH ×3 (06:00→22:02)
[2020-10-06] MEDS: BUDESONIDE (INHALATION) 180 MCG IH IN SCH ×2 (06:25→22:00)
[2020-10-06] MEDS: ALBUTEROL SULF HFA 90MCG INH 200DOSE IN PRN ×2 (06:25→22:38)
[2020-10-06 08:00] VITALS: BP 112/73
[2020-10-06] MEDS: DexAMETHasone SOD PHOS 10MG/1ML VIAL INJ IV SCH (09:49)
[2020-10-06] MEDS: CHOLECALCIFEROL (VITD3) 2,000 UNIT CAP/TAB PO SCH (09:49)
[2020-10-06] MEDS: ZINC SULFATE 220mg CAP or TAB PO SCH (09:49)
[2020-10-06] MEDS: ASCORBIC ACID 1,000 MG TAB PO SCH (09:49)
[2020-10-06] MEDS: FUROSEMIDE 40 MG/4 ML VIAL IV SCH (09:49)
[2020-10-06] MEDS: ENOXAPARIN SOD 40 MG/0.4 ML SYRINGE SC SCH ×2 (09:50→20:55)
[2020-10-06] MEDS: MULTIPLE VITAMIN TAB PO SCH (09:50)
[2020-10-06] MEDS: POTASSIUM CHL 10 Meq TABLET PO SCH (09:50)
[2020-10-06] MEDS: LACTULOSE 20Gm/30ML SOLN PO PRN (10:03)
[2020-10-06 16:00] VITALS: BP 123/71
[2020-10-06 23:22] VITALS: BP 122/68
[2020-10-06] MEDS: ZOLPIDEM TARTRATE 5 MG TAB PO PRN (23:32)
[2020-10-07 00:16] VITALS: BP 122/68
[2020-10-07] MEDS: guaiFENesin 200 MG/10 ML UD PO PRN ×3 (00:57→23:19)
[2020-10-07] MEDS: LORazepam 0.5 MG TAB PO PRN ×2 (01:05→21:21)
[2020-10-07] MEDS: MORPHINE SULF INJ 2 MG/ML SYRINGE 1ML IV PRN ×3 (03:31→18:42)
[2020-10-07] MEDS: BACLOFEN 10 MG TAB PO PRN (05:14)
[2020-10-07] MEDS: ALBUTEROL SULF HFA 90MCG INH 200DOSE IN PRN ×2 (06:10→19:17)
[2020-10-07] MEDS: BUDESONIDE (INHALATION) 180 MCG IH IN SCH ×2 (06:10→19:16)
[2020-10-07 08:00] VITALS: BP 117/54
[2020-10-07] MEDS: SODIUM CHLOR 0.9% PF (SALINE LOCK) 10ML VIAL/SYR IV SCH ×3 (10:36→21:10)
[2020-10-07] MEDS: FUROSEMIDE 40 MG/4 ML VIAL IV SCH ×2 (10:37→21:10)
[2020-10-07] MEDS: DexAMETHasone SOD PHOS 10MG/1ML VIAL INJ IV SCH (10:37)
[2020-10-07] MEDS: ZINC SULFATE 220mg CAP or TAB PO SCH (10:37)
[2020-10-07] MEDS: POTASSIUM CHL 10 Meq TABLET PO SCH ×2 (10:38→21:11)
[2020-10-07] MEDS: MULTIPLE VITAMIN TAB PO SCH (10:38)
[2020-10-07] MEDS: ASCORBIC ACID 1,000 MG TAB PO SCH (10:38)
[2020-10-07] MEDS: CHOLECALCIFEROL (VITD3) 2,000 UNIT CAP/TAB PO SCH (10:39)
[2020-10-07] MEDS: ENOXAPARIN SOD 40 MG/0.4 ML SYRINGE SC SCH ×2 (10:39→21:11)
[2020-10-07] MEDS ORDERED: DOCUSATE SOD 100 MG CAP PO ONE (13:15)
[2020-10-07 16:00] VITALS: BP 110/72
[2020-10-07] MEDS: DOCUSATE SOD 100 MG CAP PO SCH (21:10)
[2020-10-07] MEDS: ZOLPIDEM TARTRATE 5 MG TAB PO PRN (23:19)
[2020-10-08] VITALS: BP 118/75
[2020-10-08] MEDS: MORPHINE SULF INJ 2 MG/ML SYRINGE 1ML IV PRN ×3 (02:18→19:41)
[2020-10-08] MEDS: guaiFENesin 200 MG/10 ML UD PO PRN ×3 (03:59→21:58)
[2020-10-08] MEDS: HYDROcodone-ACET 5/325MG TAB PO PRN ×2 (03:59→14:17)
[2020-10-08] MEDS: SODIUM CHLOR 0.9% PF (SALINE LOCK) 10ML VIAL/SYR IV SCH ×3 (05:30→21:47)
[2020-10-08 08:00] VITALS: BP 121/80
[2020-10-08 08:23] LABS: Calcium 9.1 mg/dL (8.5-10.1); Potassium 3.8 mmol/L (3.5-5.1)
[2020-10-08 08:24] LABS: BUN/Creatinine Ratio 34.8
[2020-10-08] MEDS: BUDESONIDE (INHALATION) 180 MCG IH IN SCH ×2 (08:30→21:56)
[2020-10-08] MEDS: ALBUTEROL SULF HFA 90MCG INH 200DOSE IN PRN (08:30)
[2020-10-08] MEDS: ASCORBIC ACID 1,000 MG TAB PO SCH (10:23)
[2020-10-08] MEDS: CHOLECALCIFEROL (VITD3) 2,000 UNIT CAP/TAB PO SCH (10:24)
[2020-10-08] MEDS: DOCUSATE SOD 100 MG CAP PO SCH ×2 (10:24→21:47)
[2020-10-08] MEDS: MULTIPLE VITAMIN TAB PO SCH (10:24)
[2020-10-08] MEDS: ZINC SULFATE 220mg CAP or TAB PO SCH (10:24)
[2020-10-08] MEDS: DexAMETHasone SOD PHOS 10MG/1ML VIAL INJ IV SCH (10:25)
[2020-10-08] MEDS: FUROSEMIDE 40 MG/4 ML VIAL IV SCH ×2 (10:25→21:47)
[2020-10-08] MEDS: ENOXAPARIN SOD 40 MG/0.4 ML SYRINGE SC SCH ×2 (10:26→21:48)
[2020-10-08] MEDS: POTASSIUM CHL 10 Meq TABLET PO SCH ×2 (10:27→21:47)
[2020-10-08 16:00] VITALS: BP 116/68
[2020-10-08] MEDS: LORazepam 0.5 MG TAB PO PRN (21:58)
[2020-10-09] VITALS: BP 110/70
[2020-10-09] MEDS: MORPHINE SULF INJ 2 MG/ML SYRINGE 1ML IV PRN ×5 (00:13→22:30)
[2020-10-09] MEDS: guaiFENesin 200 MG/10 ML UD PO PRN ×2 (03:30→23:45)
[2020-10-09] MEDS: BACLOFEN 10 MG TAB PO PRN (03:30)
[2020-10-09] MEDS: SODIUM CHLOR 0.9% PF (SALINE LOCK) 10ML VIAL/SYR IV SCH ×3 (06:28→21:13)
[2020-10-09 07:02] LABS: Potassium 4.4 mmol/L (3.5-5.1)
[2020-10-09 07:11] LABS: BUN/Creatinine Ratio 30.1; Calcium 9.3 mg/dL (8.5-10.1)
[2020-10-09] MEDS: DexAMETHasone SOD PHOS 10MG/1ML VIAL INJ IV SCH (09:37)
[2020-10-09] MEDS: FUROSEMIDE 40 MG/4 ML VIAL IV SCH (09:37)
[2020-10-09] MEDS: POTASSIUM CHL 10 Meq TABLET PO SCH (09:38)
[2020-10-09] MEDS: DOCUSATE SOD 100 MG CAP PO SCH ×2 (09:38→21:24)
[2020-10-09] MEDS: MULTIPLE VITAMIN TAB PO SCH (09:38)
[2020-10-09] MEDS: ZINC SULFATE 220mg CAP or TAB PO SCH (09:38)
[2020-10-09] MEDS: CHOLECALCIFEROL (VITD3) 2,000 UNIT CAP/TAB PO SCH (09:39)
[2020-10-09] MEDS: ASCORBIC ACID 1,000 MG TAB PO SCH (09:39)
[2020-10-09] MEDS: ENOXAPARIN SOD 40 MG/0.4 ML SYRINGE SC SCH ×2 (09:39→21:13)
[2020-10-09] MEDS: BUDESONIDE (INHALATION) 180 MCG IH IN SCH ×2 (10:00→19:34)
[2020-10-09] MEDS ORDERED: ALPRAZolam 0.5 MG TAB PO ONE (11:30)
[2020-10-09] MEDS: HYDROcodone-ACET 5/325MG TAB PO PRN (13:23)
[2020-10-09 15:59] VITALS: BP 119/73
[2020-10-09] MEDS: ALBUTEROL SULF HFA 90MCG INH 200DOSE IN PRN (19:34)
[2020-10-09] MEDS: ALPRAZolam 0.5 MG TAB PO SCH (21:13)
[2020-10-10 00:06] VITALS: BP 123/78
[2020-10-10] MEDS: guaiFENesin 200 MG/10 ML UD PO PRN ×2 (04:03→20:01)
[2020-10-10] MEDS: MORPHINE SULF INJ 2 MG/ML SYRINGE 1ML IV PRN ×4 (04:03→22:05)
[2020-10-10] MEDS: LORazepam 0.5 MG TAB PO PRN ×2 (06:28→22:06)
[2020-10-10] MEDS: SODIUM CHLOR 0.9% PF (SALINE LOCK) 10ML VIAL/SYR IV SCH ×3 (06:29→22:07)
[2020-10-10 08:00] VITALS: BP 119/75
[2020-10-10] MEDS: BUDESONIDE (INHALATION) 180 MCG IH IN SCH ×2 (10:00→20:17)
[2020-10-10] MEDS: MULTIPLE VITAMIN TAB PO SCH (10:50)
[2020-10-10] MEDS: ZINC SULFATE 220mg CAP or TAB PO SCH (10:51)
[2020-10-10] MEDS: DOCUSATE SOD 100 MG CAP PO SCH ×2 (10:51→22:07)
[2020-10-10] MEDS: CHOLECALCIFEROL (VITD3) 2,000 UNIT CAP/TAB PO SCH (10:51)
[2020-10-10] MEDS: ALPRAZolam 0.5 MG TAB PO SCH ×2 (10:52→20:01)
[2020-10-10] MEDS: HYDROcodone-ACET 5/325MG TAB PO PRN (10:52)
[2020-10-10] MEDS: ASCORBIC ACID 1,000 MG TAB PO SCH (10:52)
[2020-10-10] MEDS: FUROSEMIDE 40 MG/4 ML VIAL IV SCH (10:53)
[2020-10-10] MEDS: DexAMETHasone SOD PHOS 10MG/1ML VIAL INJ IV SCH (10:53)
[2020-10-10] MEDS: POTASSIUM CHL 10 Meq TABLET PO SCH (10:54)
[2020-10-10] MEDS: ENOXAPARIN SOD 40 MG/0.4 ML SYRINGE SC SCH ×2 (10:55→22:05)
[2020-10-10 16:00] VITALS: BP 111/62
[2020-10-10] MEDS: ALBUTEROL SULF HFA 90MCG INH 200DOSE IN PRN (20:18)
[2020-10-10 23:39] VITALS: BP 108/75
[2020-10-11] MEDS: guaiFENesin 200 MG/10 ML UD PO PRN ×3 (00:32→23:59)
[2020-10-11] MEDS: ZOLPIDEM TARTRATE 5 MG TAB PO PRN ×2 (00:32→21:47)
[2020-10-11] MEDS: HYDROcodone-ACET 5/325MG TAB PO PRN ×3 (04:59→19:38)
[2020-10-11] MEDS: LORazepam 0.5 MG TAB PO PRN ×2 (05:08→16:54)
[2020-10-11] MEDS: MORPHINE SULF INJ 2 MG/ML SYRINGE 1ML IV PRN ×2 (05:50→13:38)
[2020-10-11] MEDS: SODIUM CHLOR 0.9% PF (SALINE LOCK) 10ML VIAL/SYR IV SCH ×3 (05:51→21:46)
[2020-10-11 08:00] VITALS: BP 104/60
[2020-10-11] MEDS: ENOXAPARIN SOD 40 MG/0.4 ML SYRINGE SC SCH ×2 (09:32→21:44)
[2020-10-11] MEDS: ASCORBIC ACID 1,000 MG TAB PO SCH (09:33)
[2020-10-11] MEDS: DOCUSATE SOD 100 MG CAP PO SCH ×2 (09:33→21:45)
[2020-10-11] MEDS: ALPRAZolam 0.5 MG TAB PO SCH ×2 (09:33→21:46)
[2020-10-11] MEDS: POTASSIUM CHL 10 Meq TABLET PO SCH (09:33)
[2020-10-11] MEDS: FUROSEMIDE 40 MG/4 ML VIAL IV SCH (09:33)
[2020-10-11] MEDS: ZINC SULFATE 220mg CAP or TAB PO SCH (09:33)
[2020-10-11] MEDS: MULTIPLE VITAMIN TAB PO SCH (09:33)
[2020-10-11] MEDS: DexAMETHasone SOD PHOS 10MG/1ML VIAL INJ IV SCH (09:34)
[2020-10-11] MEDS: CHOLECALCIFEROL (VITD3) 2,000 UNIT CAP/TAB PO SCH (09:34)
[2020-10-11] MEDS: BUDESONIDE (INHALATION) 180 MCG IH IN SCH ×2 (09:50→20:39)
[2020-10-11] MEDS: ALBUTEROL SULF HFA 90MCG INH 200DOSE IN PRN ×2 (09:51→20:39)
[2020-10-11 16:00] VITALS: BP 120/71
[2020-10-11 20:39] VITALS: BP 120/71
[2020-10-12] VITALS: BP 119/79
[2020-10-12 02:20] VITALS: BP 119/79
[2020-10-12] MEDS: MORPHINE SULF INJ 2 MG/ML SYRINGE 1ML IV PRN ×3 (04:04→13:01)
[2020-10-12] MEDS: guaiFENesin 200 MG/10 ML UD PO PRN (04:04)
[2020-10-12] MEDS: LORazepam 0.5 MG TAB PO PRN ×2 (04:30→19:15)
[2020-10-12] MEDS: SODIUM CHLOR 0.9% PF (SALINE LOCK) 10ML VIAL/SYR IV SCH ×3 (05:52→22:05)
[2020-10-12 08:00] VITALS: BP 117/70
[2020-10-12 08:15] VITALS: BP 119/79
[2020-10-12] MEDS: POTASSIUM CHL 10 Meq TABLET PO SCH (09:07)
[2020-10-12] MEDS: DOCUSATE SOD 100 MG CAP PO SCH ×2 (09:07→22:05)
[2020-10-12] MEDS: MULTIPLE VITAMIN TAB PO SCH (09:07)
[2020-10-12] MEDS: HYDROcodone-ACET 5/325MG TAB PO PRN ×3 (09:07→22:11)
[2020-10-12] MEDS: ASCORBIC ACID 1,000 MG TAB PO SCH (09:07)
[2020-10-12] MEDS: ZINC SULFATE 220mg CAP or TAB PO SCH (09:07)
[2020-10-12] MEDS: DexAMETHasone SOD PHOS 10MG/1ML VIAL INJ IV SCH (09:08)
[2020-10-12] MEDS: ENOXAPARIN SOD 40 MG/0.4 ML SYRINGE SC SCH ×2 (09:08→22:04)
[2020-10-12] MEDS: ALPRAZolam 0.5 MG TAB PO SCH ×2 (09:08→22:05)
[2020-10-12] MEDS: CHOLECALCIFEROL (VITD3) 2,000 UNIT CAP/TAB PO SCH (09:08)
[2020-10-12] MEDS: FUROSEMIDE 40 MG/4 ML VIAL IV SCH (09:09)
[2020-10-12] MEDS: BUDESONIDE (INHALATION) 180 MCG IH IN SCH ×2 (09:33→18:52)
[2020-10-12 11:15] VITALS: BP 119/79
[2020-10-12 16:00] VITALS: BP 150/89
[2020-10-12] MEDS: ALBUTEROL SULF HFA 90MCG INH 200DOSE IN PRN (18:57)
[2020-10-12] MEDS: ZOLPIDEM TARTRATE 5 MG TAB PO PRN (22:03)
[2020-10-13] VITALS: BP 137/93
[2020-10-13] MEDS: guaiFENesin 200 MG/10 ML UD PO PRN ×2 (00:55→08:51)
[2020-10-13] MEDS: MORPHINE SULF INJ 2 MG/ML SYRINGE 1ML IV PRN ×3 (00:56→21:58)
[2020-10-13 01:03] VITALS: BP 137/93
[2020-10-13] MEDS: SODIUM CHLOR 0.9% PF (SALINE LOCK) 10ML VIAL/SYR IV SCH ×3 (06:12→21:57)
[2020-10-13] MEDS: LORazepam 0.5 MG TAB PO PRN (06:15)
[2020-10-13 07:12] LABS: Basophils # (auto) 0 10 ^3/uL (0-0.2); Basophils % (auto) 0.4 % (0.0-2.0); Eosinophils # (auto) 0.7 10 ^3/uL (0-0.8); Eosinophils % (auto) 6.3 % (0.0-7.0); Lymphocytes # (auto) 2.4 10 ^3/uL (0.4-5.4); Lymphocytes % (auto) 23.3 % (10.0-50.0); Mean Corpuscular Hemoglobin 30.9 pg (28.0-32.0); Mean Corpuscular Hgb Conc. 34.3 g/dL (32.0-36.0); Mean Corpuscular Volume 90.3 fL (80.0-100.0); Monocytes # (auto) 1.1 10 ^3/uL (0-1.3); Monocytes % (auto) 10.4 % (0.0-12.0); Neutrophils # (auto) 6.2 10 ^3/uL (1.6-8.6); Neutrophils % (auto) 59.6 % (37.0-80.0); Nucleated Red Blood Cells % 0.1 %; Platelet Count (auto) 217 10^3/uL (140-450); Red Blood Cells 4.21 10^6/uL (4.5-5.90); White Blood Cell 10.4 10^3/uL (4.4-10.8)
[2020-10-13 07:25] LABS: Albumin 3.3 g/dL (3.4-5.0); Calcium 9.1 mg/dL (8.5-10.1); Potassium 3.7 mmol/L (3.5-5.1)
[2020-10-13 07:29] LABS: Bilirubin, Total 0.7 mg/dL (0.2-1.0); Total Protein 7.3 g/dL (6.4-8.2)
[2020-10-13 07:39] VITALS: BP 115/78
[2020-10-13] MEDS: DexAMETHasone SOD PHOS 10MG/1ML VIAL INJ IV SCH (08:51)
[2020-10-13] MEDS: ENOXAPARIN SOD 40 MG/0.4 ML SYRINGE SC SCH (08:51)
[2020-10-13] MEDS: FUROSEMIDE 40 MG/4 ML VIAL IV SCH (08:51)
[2020-10-13] MEDS: CHOLECALCIFEROL (VITD3) 2,000 UNIT CAP/TAB PO SCH (08:52)
[2020-10-13] MEDS: ASCORBIC ACID 1,000 MG TAB PO SCH (08:52)
[2020-10-13] MEDS: ZINC SULFATE 220mg CAP or TAB PO SCH (08:52)
[2020-10-13] MEDS: DOCUSATE SOD 100 MG CAP PO SCH ×2 (08:52→21:56)
[2020-10-13] MEDS: POTASSIUM CHL 10 Meq TABLET PO SCH (08:52)
[2020-10-13] MEDS: ALPRAZolam 0.5 MG TAB PO SCH ×2 (08:52→21:56)
[2020-10-13] MEDS: MULTIPLE VITAMIN TAB PO SCH (08:52)
[2020-10-13] MEDS: BUDESONIDE (INHALATION) 180 MCG IH IN SCH ×2 (10:00→19:17)
[2020-10-13] MEDS: ALBUTEROL SULF HFA 90MCG INH 200DOSE IN PRN ×2 (10:32→19:17)
[2020-10-13 16:00] VITALS: BP 112/72
[2020-10-13] MEDS ORDERED: LACTULOSE 20Gm/30ML SOLN PO ONE (16:00)
[2020-10-13] MEDS ORDERED: FUROSEMIDE 40 MG/4 ML VIAL IV ONE (16:00)
[2020-10-13] MEDS: BACLOFEN 10 MG TAB PO PRN (18:48)
[2020-10-13] MEDS ORDERED: ENOXAPARIN SOD 150 MG/1 ML SYRINGE SC SCH (22:00)
[2020-10-14] VITALS: BP 124/77
[2020-10-14] MEDS: guaiFENesin 200 MG/10 ML UD PO PRN ×2 (00:19→13:54)
[2020-10-14] MEDS: LORazepam 0.5 MG TAB PO PRN (00:19)
[2020-10-14] MEDS: ZOLPIDEM TARTRATE 5 MG TAB PO PRN (01:28)
[2020-10-14] MEDS: HYDROcodone-ACET 5/325MG TAB PO PRN (03:06)
[2020-10-14] MEDS: SODIUM CHLOR 0.9% PF (SALINE LOCK) 10ML VIAL/SYR IV SCH ×3 (06:14→21:16)
[2020-10-14] MEDS: MORPHINE SULF INJ 2 MG/ML SYRINGE 1ML IV PRN ×3 (06:15→22:30)
[2020-10-14 07:59] VITALS: BP 127/72
[2020-10-14] MEDS: FUROSEMIDE 40 MG/4 ML VIAL IV SCH (09:55)
[2020-10-14] MEDS: LACTULOSE 20Gm/30ML SOLN PO SCH (09:55)
[2020-10-14] MEDS: MULTIPLE VITAMIN TAB PO SCH (09:56)
[2020-10-14] MEDS: POTASSIUM CHL 10 Meq TABLET PO SCH (09:56)
[2020-10-14] MEDS: CHOLECALCIFEROL (VITD3) 2,000 UNIT CAP/TAB PO SCH (09:56)
[2020-10-14] MEDS: ZINC SULFATE 220mg CAP or TAB PO SCH (09:56)
[2020-10-14] MEDS: ALPRAZolam 0.5 MG TAB PO SCH ×2 (09:56→21:16)
[2020-10-14] MEDS: ASCORBIC ACID 1,000 MG TAB PO SCH (09:56)
[2020-10-14] MEDS: DOCUSATE SOD 100 MG CAP PO SCH (09:56)
[2020-10-14] MEDS: DexAMETHasone SOD PHOS 10MG/1ML VIAL INJ IV SCH (09:57)
[2020-10-14] MEDS: APIXABAN 5 MG TAB PO SCH ×2 (09:59→21:16)
[2020-10-14] MEDS ORDERED: APIXABAN 5 MG TAB PO SCH (10:00)
[2020-10-14] MEDS ORDERED: BUDESONIDE (INHALATION) 0.5 MG/2 ML NEB ONE (21:49)
[2020-10-14] MEDS ORDERED: ALBUTEROL SULF 2.5 MG/0.5ML(0.5%) NEB SOLN ONE (21:49)
[2020-10-14] MEDS: BUDESONIDE (INHALATION) 0.5 MG/2 ML NEB NEB SCH (21:55)
[2020-10-15] VITALS: BP_SYST 125; BP_SYST 147; BP_DIAS 75
[2020-10-15] MEDS: ZOLPIDEM TARTRATE 5 MG TAB PO PRN (00:02)
[2020-10-15] MEDS: guaiFENesin 200 MG/10 ML UD PO PRN ×2 (01:04→15:50)
[2020-10-15] MEDS: HYDROcodone-ACET 5/325MG TAB PO PRN (03:04)
[2020-10-15] MEDS: LORazepam 0.5 MG TAB PO PRN ×2 (03:58→16:24)
[2020-10-15] MEDS: SODIUM CHLOR 0.9% PF (SALINE LOCK) 10ML VIAL/SYR IV SCH ×3 (05:01→21:42)
[2020-10-15] MEDS: BUDESONIDE (INHALATION) 0.5 MG/2 ML NEB NEB SCH ×2 (06:09→22:55)
[2020-10-15] MEDS: MORPHINE SULF INJ 2 MG/ML SYRINGE 1ML IV PRN ×2 (06:13→23:02)
[2020-10-15] MEDS: ALBUTEROL SULF 2.5 MG/0.5ML(0.5%) NEB SOLN NEB PRN ×2 (06:46→22:55)
[2020-10-15 08:00] VITALS: BP 123/78
[2020-10-15] MEDS: FUROSEMIDE 40 MG/4 ML VIAL IV SCH (11:14)
[2020-10-15] MEDS: MULTIPLE VITAMIN TAB PO SCH (11:15)
[2020-10-15] MEDS: LACTULOSE 20Gm/30ML SOLN PO SCH (11:15)
[2020-10-15] MEDS: ZINC SULFATE 220mg CAP or TAB PO SCH (11:15)
[2020-10-15] MEDS: ALPRAZolam 0.5 MG TAB PO SCH ×2 (11:15→21:42)
[2020-10-15] MEDS: APIXABAN 5 MG TAB PO SCH ×2 (11:15→21:42)
[2020-10-15] MEDS: POTASSIUM CHL 10 Meq TABLET PO SCH (11:16)
[2020-10-15] MEDS: DexAMETHasone 4 MG TAB PO SCH (11:16)
[2020-10-15] MEDS: ASCORBIC ACID 1,000 MG TAB PO SCH (11:16)
[2020-10-15] MEDS: CHOLECALCIFEROL (VITD3) 2,000 UNIT CAP/TAB PO SCH (11:16)
[2020-10-15 16:00] VITALS: BP 126/69
[2020-10-16] VITALS: BP 147/75
[2020-10-16] MEDS: guaiFENesin 200 MG/10 ML UD PO PRN ×3 (00:41→22:00)
[2020-10-16] MEDS: ZOLPIDEM TARTRATE 5 MG TAB PO PRN (02:09)
[2020-10-16] MEDS: MORPHINE SULF INJ 2 MG/ML SYRINGE 1ML IV PRN ×4 (05:28→23:32)
[2020-10-16] MEDS: BUDESONIDE (INHALATION) 0.5 MG/2 ML NEB NEB SCH ×2 (06:25→07:15)
[2020-10-16] MEDS: ALBUTEROL SULF 2.5 MG/0.5ML(0.5%) NEB SOLN NEB PRN (06:25)
[2020-10-16] MEDS: SODIUM CHLOR 0.9% PF (SALINE LOCK) 10ML VIAL/SYR IV SCH ×3 (06:34→21:37)
[2020-10-16 06:51] LABS: Basophils # (auto) 0.1 10 ^3/uL (0-0.2); Basophils % (auto) 0.6 % (0.0-2.0); Eosinophils # (auto) 0.7 10 ^3/uL (0-0.8); Eosinophils % (auto) 6.6 % (0.0-7.0); Hematocrit 38.6 % (41.0-53.0); Hemoglobin 13.2 g/dL (13.5-17.5); Lymphocytes # (auto) 2.1 10 ^3/uL (0.4-5.4); Lymphocytes % (auto) 20.9 % (10.0-50.0); Mean Corpuscular Hgb Conc. 34.1 g/dL (32.0-36.0); Mean Corpuscular Volume 90.8 fL (80.0-100.0); Monocytes # (auto) 1.1 10 ^3/uL (0-1.3); Monocytes % (auto) 10.8 % (0.0-12.0); Neutrophils # (auto) 6.1 10 ^3/uL (1.6-8.6); Neutrophils % (auto) 61.1 % (37.0-80.0); Nucleated Red Blood Cells % 0.1 %; Platelet Count (auto) 222 10^3/uL (140-450); Red Blood Cells 4.25 10^6/uL (4.5-5.90); Red Cell Distribution Width 14.9 % (11.8-14.3)
[2020-10-16 07:08] LABS: Potassium 3.9 mmol/L (3.5-5.1)
[2020-10-16 07:19] LABS: BUN/Creatinine Ratio 24.5
[2020-10-16 08:00] VITALS: BP 119/62
[2020-10-16] MEDS: LORazepam 0.5 MG TAB PO PRN (08:00)
[2020-10-16] MEDS: POTASSIUM CHL 10 Meq TABLET PO SCH (09:40)
[2020-10-16] MEDS: ZINC SULFATE 220mg CAP or TAB PO SCH (09:40)
[2020-10-16] MEDS: APIXABAN 5 MG TAB PO SCH ×2 (09:40→21:37)
[2020-10-16] MEDS: ASCORBIC ACID 1,000 MG TAB PO SCH (09:40)
[2020-10-16] MEDS: FUROSEMIDE 40 MG/4 ML VIAL IV SCH (09:40)
[2020-10-16] MEDS: LACTULOSE 20Gm/30ML SOLN PO SCH (09:40)
[2020-10-16] MEDS: DexAMETHasone 4 MG TAB PO SCH (09:40)
[2020-10-16] MEDS: CHOLECALCIFEROL (VITD3) 2,000 UNIT CAP/TAB PO SCH (09:40)
[2020-10-16] MEDS: ALPRAZolam 0.5 MG TAB PO SCH ×2 (09:40→21:38)
[2020-10-16] MEDS: MULTIPLE VITAMIN TAB PO SCH (09:40)
[2020-10-16 16:00] VITALS: BP 124/77
[2020-10-17] VITALS: BP 112/83
[2020-10-17] MEDS: ZOLPIDEM TARTRATE 5 MG TAB PO PRN (01:32)
[2020-10-17] MEDS: guaiFENesin 200 MG/10 ML UD PO PRN ×2 (02:05→23:50)
[2020-10-17] MEDS: LORazepam 0.5 MG TAB PO PRN (02:13)
[2020-10-17] MEDS: SODIUM CHLOR 0.9% PF (SALINE LOCK) 10ML VIAL/SYR IV SCH ×3 (05:53→21:19)
[2020-10-17] MEDS: ALBUTEROL SULF 2.5 MG/0.5ML(0.5%) NEB SOLN NEB PRN ×2 (06:15→22:51)
[2020-10-17] MEDS: BUDESONIDE (INHALATION) 0.5 MG/2 ML NEB NEB SCH ×2 (06:15→22:51)
[2020-10-17 07:37] VITALS: BP 157/75
[2020-10-17] MEDS: MORPHINE SULF INJ 2 MG/ML SYRINGE 1ML IV PRN ×2 (08:17→17:00)
[2020-10-17] MEDS: APIXABAN 5 MG TAB PO SCH ×2 (09:45→21:20)
[2020-10-17] MEDS: ZINC SULFATE 220mg CAP or TAB PO SCH (09:45)
[2020-10-17] MEDS: DexAMETHasone 4 MG TAB PO SCH (09:45)
[2020-10-17] MEDS: CHOLECALCIFEROL (VITD3) 2,000 UNIT CAP/TAB PO SCH (09:45)
[2020-10-17] MEDS: ASCORBIC ACID 1,000 MG TAB PO SCH (09:45)
[2020-10-17] MEDS: MULTIPLE VITAMIN TAB PO SCH (09:45)
[2020-10-17] MEDS: ALPRAZolam 0.5 MG TAB PO SCH ×2 (09:45→21:20)
[2020-10-17] MEDS: POTASSIUM CHL 10 Meq TABLET PO SCH (09:45)
[2020-10-17] MEDS: FUROSEMIDE 40 MG/4 ML VIAL IV SCH (09:45)
[2020-10-17] MEDS: LACTULOSE 20Gm/30ML SOLN PO SCH (09:45)
[2020-10-17 15:30] VITALS: BP 128/83
[2020-10-17] MEDS: HYDROcodone-ACET 5/325MG TAB PO PRN (21:21)
[2020-10-18] VITALS: BP 134/84
[2020-10-18] MEDS: LORazepam 0.5 MG TAB PO PRN (01:42)
[2020-10-18] MEDS: MORPHINE SULF INJ 2 MG/ML SYRINGE 1ML IV PRN ×3 (03:14→21:51)
[2020-10-18] MEDS: SODIUM CHLOR 0.9% PF (SALINE LOCK) 10ML VIAL/SYR IV SCH ×3 (05:23→21:39)
[2020-10-18] MEDS: guaiFENesin 200 MG/10 ML UD PO PRN (06:27)
[2020-10-18] MEDS: BUDESONIDE (INHALATION) 0.5 MG/2 ML NEB NEB SCH ×2 (06:35→19:35)
[2020-10-18] MEDS: ALBUTEROL SULF 2.5 MG/0.5ML(0.5%) NEB SOLN NEB PRN ×2 (06:35→19:36)
[2020-10-18 08:00] VITALS: BP 132/93
[2020-10-18] MEDS: LACTULOSE 20Gm/30ML SOLN PO SCH (09:09)
[2020-10-18] MEDS: FUROSEMIDE 40 MG/4 ML VIAL IV SCH (09:09)
[2020-10-18] MEDS: ZINC SULFATE 220mg CAP or TAB PO SCH (09:09)
[2020-10-18] MEDS: APIXABAN 5 MG TAB PO SCH ×2 (09:10→21:39)
[2020-10-18] MEDS: DexAMETHasone 4 MG TAB PO SCH (09:10)
[2020-10-18] MEDS: POTASSIUM CHL 10 Meq TABLET PO SCH (09:10)
[2020-10-18] MEDS: MULTIPLE VITAMIN TAB PO SCH (09:10)
[2020-10-18] MEDS: ASCORBIC ACID 1,000 MG TAB PO SCH (09:11)
[2020-10-18] MEDS: ALPRAZolam 0.5 MG TAB PO SCH ×2 (09:11→21:39)
[2020-10-18] MEDS: CHOLECALCIFEROL (VITD3) 2,000 UNIT CAP/TAB PO SCH (09:11)
[2020-10-18] MEDS: HYDROcodone-ACET 5/325MG TAB PO PRN (14:47)
[2020-10-18 16:00] VITALS: BP 108/72
[2020-10-18] MEDS ORDERED: cefTRIAXone 1GM/50ML D5W 50 ML IV ONE (17:00)
[2020-10-18] MEDS: DOXYCYCLINE 100 MG TAB/CAP PO SCH (21:39)
[2020-10-19] VITALS: BP 143/78
[2020-10-19] MEDS: guaiFENesin 200 MG/10 ML UD PO PRN ×4 (01:47→23:10)
[2020-10-19] MEDS: MORPHINE SULF INJ 2 MG/ML SYRINGE 1ML IV PRN ×2 (04:31→17:17)
[2020-10-19] MEDS: SODIUM CHLOR 0.9% PF (SALINE LOCK) 10ML VIAL/SYR IV SCH ×3 (06:05→22:36)
[2020-10-19] MEDS: BUDESONIDE (INHALATION) 0.5 MG/2 ML NEB NEB SCH ×2 (06:58→22:00)
[2020-10-19] MEDS: ALBUTEROL SULF 2.5 MG/0.5ML(0.5%) NEB SOLN NEB PRN (06:58)
[2020-10-19 07:57] VITALS: BP 144/81
[2020-10-19 08:22] LABS: Basophils # (auto) 0.1 10 ^3/uL (0-0.2); Basophils % (auto) 0.4 % (0.0-2.0); Eosinophils # (auto) 0.7 10 ^3/uL (0-0.8); Eosinophils % (auto) 5.5 % (0.0-7.0); Hemoglobin 12.6 g/dL (13.5-17.5); Lymphocytes # (auto) 2.5 10 ^3/uL (0.4-5.4); Lymphocytes % (auto) 21.1 % (10.0-50.0); Mean Corpuscular Hemoglobin 30.1 pg (28.0-32.0); Mean Corpuscular Hgb Conc. 33.2 g/dL (32.0-36.0); Mean Corpuscular Volume 90.7 fL (80.0-100.0); Monocytes # (auto) 1.4 10 ^3/uL (0-1.3); Monocytes % (auto) 11.7 % (0.0-12.0); Neutrophils # (auto) 7.3 10 ^3/uL (1.6-8.6); Neutrophils % (auto) 61.3 % (37.0-80.0); Nucleated Red Blood Cells % 0.1 %; Platelet Count (auto) 278 10^3/uL (140-450); Red Cell Distribution Width 14.9 % (11.8-14.3); White Blood Cell 11.9 10^3/uL (4.4-10.8)
[2020-10-19 08:46] LABS: Potassium 3.4 mmol/L (3.5-5.1)
[2020-10-19 08:49] LABS: BUN/Creatinine Ratio 31.4; Calcium 9.3 mg/dL (8.5-10.1)
[2020-10-19] MEDS: LACTULOSE 20Gm/30ML SOLN PO SCH (09:05)
[2020-10-19] MEDS: CHOLECALCIFEROL (VITD3) 2,000 UNIT CAP/TAB PO SCH (09:06)
[2020-10-19] MEDS: ASCORBIC ACID 1,000 MG TAB PO SCH (09:06)
[2020-10-19] MEDS: APIXABAN 5 MG TAB PO SCH ×2 (09:07→22:36)
[2020-10-19] MEDS: ZINC SULFATE 220mg CAP or TAB PO SCH (09:07)
[2020-10-19] MEDS: DexAMETHasone 4 MG TAB PO SCH (09:07)
[2020-10-19] MEDS: POTASSIUM CHL 10 Meq TABLET PO SCH (09:08)
[2020-10-19] MEDS: ALPRAZolam 0.5 MG TAB PO SCH ×2 (09:08→22:36)
[2020-10-19] MEDS: MULTIPLE VITAMIN TAB PO SCH (09:08)
[2020-10-19] MEDS: FUROSEMIDE 40 MG/4 ML VIAL IV SCH (09:09)
[2020-10-19] MEDS: cefTRIAXone 1GM/50ML D5W 50 ML IV SCH (09:09)
[2020-10-19] MEDS: DOXYCYCLINE 100 MG TAB/CAP PO SCH ×2 (09:09→22:36)
[2020-10-19] MEDS: LORazepam 0.5 MG TAB PO PRN (14:30)
[2020-10-19] MEDS ORDERED: POTASSIUM CHL 10 Meq TABLET PO ONE (14:45)
[2020-10-19 16:00] VITALS: BP 133/79
[2020-10-19] MEDS: HYDROcodone-ACET 5/325MG TAB PO PRN (20:56)
[2020-10-20] VITALS: BP 130/85
[2020-10-20] MEDS: ALBUTEROL SULF 2.5 MG/0.5ML(0.5%) NEB SOLN NEB PRN ×2 (00:13→22:28)
[2020-10-20] MEDS: LORazepam 0.5 MG TAB PO PRN (03:07)
[2020-10-20] MEDS: guaiFENesin 200 MG/10 ML UD PO PRN ×3 (04:37→21:53)
[2020-10-20] MEDS: MORPHINE SULF INJ 2 MG/ML SYRINGE 1ML IV PRN ×3 (04:37→21:53)
[2020-10-20] MEDS: SODIUM CHLOR 0.9% PF (SALINE LOCK) 10ML VIAL/SYR IV SCH ×3 (06:00→21:47)
[2020-10-20 06:23] LABS: Basophils # (auto) 0.1 10 ^3/uL (0-0.2); Basophils % (auto) 0.4 % (0.0-2.0); Eosinophils # (auto) 0.9 10 ^3/uL (0-0.8); Eosinophils % (auto) 6.7 % (0.0-7.0); Hematocrit 36.4 % (41.0-53.0); Hemoglobin 12.2 g/dL (13.5-17.5); Lymphocytes # (auto) 2.5 10 ^3/uL (0.4-5.4); Lymphocytes % (auto) 19.1 % (10.0-50.0); Mean Corpuscular Hemoglobin 30.5 pg (28.0-32.0); Mean Corpuscular Hgb Conc. 33.5 g/dL (32.0-36.0); Monocytes # (auto) 1.4 10 ^3/uL (0-1.3); Monocytes % (auto) 10.8 % (0.0-12.0); Neutrophils # (auto) 8.2 10 ^3/uL (1.6-8.6); Nucleated Red Blood Cells % 0.1 %; Platelet Count (auto) 284 10^3/uL (140-450); Red Cell Distribution Width 15.1 % (11.8-14.3); White Blood Cell 13.1 10^3/uL (4.4-10.8)
[2020-10-20 06:37] LABS: BUN/Creatinine Ratio 35.2; Calcium 9.1 mg/dL (8.5-10.1); Potassium 3.5 mmol/L (3.5-5.1)
[2020-10-20 08:00] VITALS: BP 142/77
[2020-10-20] MEDS: cefTRIAXone 1GM/50ML D5W 50 ML IV SCH (09:24)
[2020-10-20] MEDS: ZINC SULFATE 220mg CAP or TAB PO SCH (09:26)
[2020-10-20] MEDS: LACTULOSE 20Gm/30ML SOLN PO SCH (09:26)
[2020-10-20] MEDS: MULTIPLE VITAMIN TAB PO SCH (09:27)
[2020-10-20] MEDS: POTASSIUM CHL 20 Meq TABLET PO SCH (09:27)
[2020-10-20] MEDS: APIXABAN 5 MG TAB PO SCH ×2 (09:27→21:47)
[2020-10-20] MEDS: DOXYCYCLINE 100 MG TAB/CAP PO SCH ×2 (09:28→21:47)
[2020-10-20] MEDS: FUROSEMIDE 40 MG/4 ML VIAL IV SCH (09:29)
[2020-10-20] MEDS: CHOLECALCIFEROL (VITD3) 2,000 UNIT CAP/TAB PO SCH (09:30)
[2020-10-20] MEDS: ALPRAZolam 0.5 MG TAB PO SCH ×2 (09:30→21:47)
[2020-10-20] MEDS: ASCORBIC ACID 1,000 MG TAB PO SCH (09:30)
[2020-10-20 16:00] VITALS: BP 117/78
[2020-10-20] MEDS: BUDESONIDE (INHALATION) 0.5 MG/2 ML NEB NEB SCH (22:28)
[2020-10-21] MEDS: guaiFENesin 200 MG/10 ML UD PO PRN ×4 (01:49→23:21)
[2020-10-21] MEDS: LORazepam 0.5 MG TAB PO PRN (01:56)
[2020-10-21] MEDS: MORPHINE SULF INJ 2 MG/ML SYRINGE 1ML IV PRN ×2 (03:57→23:21)
[2020-10-21] MEDS: SODIUM CHLOR 0.9% PF (SALINE LOCK) 10ML VIAL/SYR IV SCH ×3 (05:54→21:23)
[2020-10-21 07:05] LABS: Basophils # (auto) 0.1 10 ^3/uL (0-0.2); Basophils % (auto) 0.6 % (0.0-2.0); Eosinophils # (auto) 1.1 10 ^3/uL (0-0.8); Eosinophils % (auto) 7.3 % (0.0-7.0); Hematocrit 35.1 % (41.0-53.0); Hemoglobin 11.8 g/dL (13.5-17.5); Lymphocytes # (auto) 2.1 10 ^3/uL (0.4-5.4); Lymphocytes % (auto) 14.3 % (10.0-50.0); Mean Corpuscular Hemoglobin 30.4 pg (28.0-32.0); Mean Corpuscular Hgb Conc. 33.7 g/dL (32.0-36.0); Mean Corpuscular Volume 90.3 fL (80.0-100.0); Monocytes # (auto) 1.1 10 ^3/uL (0-1.3); Monocytes % (auto) 7.6 % (0.0-12.0); Neutrophils # (auto) 10.4 10 ^3/uL (1.6-8.6); Neutrophils % (auto) 70.2 % (37.0-80.0); Nucleated Red Blood Cells % 0.1 %; Platelet Count (auto) 304 10^3/uL (140-450); Red Blood Cells 3.88 10^6/uL (4.5-5.90); Red Cell Distribution Width 15.3 % (11.8-14.3); White Blood Cell 14.9 10^3/uL (4.4-10.8)
[2020-10-21 07:35] LABS: Potassium 3.5 mmol/L (3.5-5.1)
[2020-10-21 07:49] LABS: BUN/Creatinine Ratio 33.7; Calcium 8.9 mg/dL (8.5-10.1)
[2020-10-21 08:00] VITALS: BP 107/64
[2020-10-21] MEDS: ZINC SULFATE 220mg CAP or TAB PO SCH (08:55)
[2020-10-21] MEDS: LACTULOSE 20Gm/30ML SOLN PO SCH (08:55)
[2020-10-21] MEDS: ASCORBIC ACID 1,000 MG TAB PO SCH (08:56)
[2020-10-21] MEDS: CHOLECALCIFEROL (VITD3) 2,000 UNIT CAP/TAB PO SCH (08:56)
[2020-10-21] MEDS: APIXABAN 5 MG TAB PO SCH ×2 (08:57→21:22)
[2020-10-21] MEDS: DexAMETHasone 4 MG TAB PO SCH (08:57)
[2020-10-21] MEDS: ALPRAZolam 0.5 MG TAB PO SCH ×2 (08:58→21:23)
[2020-10-21] MEDS: DOXYCYCLINE 100 MG TAB/CAP PO SCH ×2 (08:58→21:23)
[2020-10-21] MEDS: POTASSIUM CHL 20 Meq TABLET PO SCH (08:59)
[2020-10-21] MEDS: MULTIPLE VITAMIN TAB PO SCH (08:59)
[2020-10-21] MEDS: cefTRIAXone 1GM/50ML D5W 50 ML IV SCH (08:59)
[2020-10-21] MEDS: FUROSEMIDE 40 MG/4 ML VIAL IV SCH (09:02)
[2020-10-21] MEDS: BUDESONIDE (INHALATION) 0.5 MG/2 ML NEB NEB SCH ×2 (09:55→21:51)
[2020-10-21] MEDS: ALBUTEROL SULF 2.5 MG/0.5ML(0.5%) NEB SOLN NEB PRN ×2 (09:55→22:45)
[2020-10-21 16:00] VITALS: BP 117/71
[2020-10-21 23:52] VITALS: BP 113/63
[2020-10-22] MEDS: HYDROcodone-ACET 5/325MG TAB PO PRN (04:46)
[2020-10-22] MEDS: guaiFENesin 200 MG/10 ML UD PO PRN ×3 (04:46→22:17)
[2020-10-22] MEDS: SODIUM CHLOR 0.9% PF (SALINE LOCK) 10ML VIAL/SYR IV SCH ×3 (06:26→21:31)
[2020-10-22] MEDS: BUDESONIDE (INHALATION) 0.5 MG/2 ML NEB NEB SCH ×2 (07:20→21:51)
[2020-10-22] MEDS: ALBUTEROL SULF 2.5 MG/0.5ML(0.5%) NEB SOLN NEB PRN ×2 (07:20→21:52)
[2020-10-22 07:30] LABS: Basophils # (auto) 0 10 ^3/uL (0-0.2); Basophils % (auto) 0.3 % (0.0-2.0); Eosinophils # (auto) 0.3 10 ^3/uL (0-0.8); Eosinophils % (auto) 3.2 % (0.0-7.0); Hematocrit 35.5 % (41.0-53.0); Hemoglobin 12.4 g/dL (13.5-17.5); Lymphocytes # (auto) 2.2 10 ^3/uL (0.4-5.4); Lymphocytes % (auto) 21.2 % (10.0-50.0); Mean Corpuscular Hemoglobin 31.3 pg (28.0-32.0); Mean Corpuscular Hgb Conc. 34.8 g/dL (32.0-36.0); Monocytes # (auto) 1.1 10 ^3/uL (0-1.3); Neutrophils # (auto) 6.6 10 ^3/uL (1.6-8.6); Neutrophils % (auto) 64.3 % (37.0-80.0); Nucleated Red Blood Cells % 0.2 %; Platelet Count (auto) 329 10^3/uL (140-450); Red Blood Cells 3.95 10^6/uL (4.5-5.90); Red Cell Distribution Width 15.1 % (11.8-14.3); White Blood Cell 10.2 10^3/uL (4.4-10.8)
[2020-10-22 07:43] LABS: BUN/Creatinine Ratio 29.2; Calcium 9.4 mg/dL (8.5-10.1); Potassium 3.4 mmol/L (3.5-5.1)
[2020-10-22 08:00] VITALS: BP 135/79
[2020-10-22] MEDS: LACTULOSE 20Gm/30ML SOLN PO SCH (08:08)
[2020-10-22] MEDS: cefTRIAXone 1GM/50ML D5W 50 ML IV SCH (08:08)
[2020-10-22] MEDS: ZINC SULFATE 220mg CAP or TAB PO SCH (09:59)
[2020-10-22] MEDS: FUROSEMIDE 40 MG/4 ML VIAL IV SCH (09:59)
[2020-10-22] MEDS: POTASSIUM CHL 20 Meq TABLET PO SCH ×2 (10:00→21:33)
[2020-10-22] MEDS: APIXABAN 5 MG TAB PO SCH ×2 (10:00→21:33)
[2020-10-22] MEDS: MULTIPLE VITAMIN TAB PO SCH (10:00)
[2020-10-22] MEDS: DOXYCYCLINE 100 MG TAB/CAP PO SCH ×2 (10:01→21:33)
[2020-10-22] MEDS: ASCORBIC ACID 1,000 MG TAB PO SCH (10:01)
[2020-10-22] MEDS: ALPRAZolam 0.5 MG TAB PO SCH ×2 (10:02→21:33)
[2020-10-22] MEDS: CHOLECALCIFEROL (VITD3) 2,000 UNIT CAP/TAB PO SCH (10:02)
[2020-10-22] MEDS: MORPHINE SULF INJ 2 MG/ML SYRINGE 1ML IV PRN ×2 (12:42→21:29)
[2020-10-22 16:00] VITALS: BP 125/74
[2020-10-23 00:23] VITALS: BP 137/82
[2020-10-23] MEDS: LORazepam 0.5 MG TAB PO PRN (01:59)
[2020-10-23] MEDS: guaiFENesin 200 MG/10 ML UD PO PRN ×4 (02:00→22:50)
[2020-10-23] MEDS: MORPHINE SULF INJ 2 MG/ML SYRINGE 1ML IV PRN ×3 (04:08→21:49)
[2020-10-23 05:54] LABS: Basophils # (auto) 0.1 10 ^3/uL (0-0.2); Basophils % (auto) 0.6 % (0.0-2.0); Eosinophils % (auto) 8.2 % (0.0-7.0); Hematocrit 35.7 % (41.0-53.0); Hemoglobin 11.9 g/dL (13.5-17.5); Lymphocytes # (auto) 2.3 10 ^3/uL (0.4-5.4); Lymphocytes % (auto) 18.5 % (10.0-50.0); Mean Corpuscular Hemoglobin 30.3 pg (28.0-32.0); Mean Corpuscular Hgb Conc. 33.4 g/dL (32.0-36.0); Mean Corpuscular Volume 90.7 fL (80.0-100.0); Monocytes # (auto) 1.2 10 ^3/uL (0-1.3); Monocytes % (auto) 9.8 % (0.0-12.0); Neutrophils # (auto) 7.7 10 ^3/uL (1.6-8.6); Neutrophils % (auto) 62.9 % (37.0-80.0); Nucleated Red Blood Cells % 0.1 %; Platelet Count (auto) 330 10^3/uL (140-450); Red Blood Cells 3.94 10^6/uL (4.5-5.90); White Blood Cell 12.3 10^3/uL (4.4-10.8)
[2020-10-23] MEDS: SODIUM CHLOR 0.9% PF (SALINE LOCK) 10ML VIAL/SYR IV SCH ×3 (06:00→21:39)
[2020-10-23] MEDS: BUDESONIDE (INHALATION) 0.5 MG/2 ML NEB NEB SCH ×2 (06:20→22:00)
[2020-10-23] MEDS: ALBUTEROL SULF 2.5 MG/0.5ML(0.5%) NEB SOLN NEB PRN ×2 (06:20→22:44)
[2020-10-23 06:23] LABS: Potassium 3.6 mmol/L (3.5-5.1)
[2020-10-23 06:36] LABS: BUN/Creatinine Ratio 36.5; Calcium 9.2 mg/dL (8.5-10.1)
[2020-10-23] MEDS: HYDROcodone-ACET 5/325MG TAB PO PRN ×2 (06:59→09:01)
[2020-10-23 08:00] VITALS: BP 121/82
[2020-10-23] MEDS: cefTRIAXone 1GM/50ML D5W 50 ML IV SCH (09:00)
[2020-10-23] MEDS: ALPRAZolam 0.5 MG TAB PO SCH ×2 (11:00→21:40)
[2020-10-23] MEDS: LACTULOSE 20Gm/30ML SOLN PO SCH (11:00)
[2020-10-23] MEDS: CHOLECALCIFEROL (VITD3) 2,000 UNIT CAP/TAB PO SCH (11:00)
[2020-10-23] MEDS: FUROSEMIDE 40 MG/4 ML VIAL IV SCH ×2 (11:00→19:11)
[2020-10-23] MEDS: APIXABAN 5 MG TAB PO SCH ×2 (11:00→21:39)
[2020-10-23] MEDS: MULTIPLE VITAMIN TAB PO SCH (11:00)
[2020-10-23] MEDS: ZINC SULFATE 220mg CAP or TAB PO SCH (11:00)
[2020-10-23] MEDS: POTASSIUM CHL 20 Meq TABLET PO SCH ×2 (11:00→21:39)
[2020-10-23] MEDS: DOXYCYCLINE 100 MG TAB/CAP PO SCH ×2 (11:00→21:39)
[2020-10-23] MEDS: DexAMETHasone 4 MG TAB PO SCH (11:00)
[2020-10-23] MEDS: ASCORBIC ACID 1,000 MG TAB PO SCH (11:00)
[2020-10-23 16:00] VITALS: BP 115/71
[2020-10-23 23:48] VITALS: BP 117/78
[2020-10-24] MEDS: LORazepam 0.5 MG TAB PO PRN (03:49)
[2020-10-24] MEDS: MORPHINE SULF INJ 2 MG/ML SYRINGE 1ML IV PRN ×3 (03:57→22:31)
[2020-10-24] MEDS: SODIUM CHLOR 0.9% PF (SALINE LOCK) 10ML VIAL/SYR IV SCH ×3 (05:44→22:30)
[2020-10-24] MEDS: FUROSEMIDE 40 MG/4 ML VIAL IV SCH ×2 (05:44→18:12)
[2020-10-24] MEDS: ALBUTEROL SULF 2.5 MG/0.5ML(0.5%) NEB SOLN NEB PRN ×2 (06:05→21:41)
[2020-10-24] MEDS: BUDESONIDE (INHALATION) 0.5 MG/2 ML NEB NEB SCH ×2 (06:05→21:41)
[2020-10-24 06:36] LABS: Basophils # (auto) 0 10 ^3/uL (0-0.2); Basophils % (auto) 0.5 % (0.0-2.0); Eosinophils # (auto) 0.1 10 ^3/uL (0-0.8); Eosinophils % (auto) 0.9 % (0.0-7.0); Hematocrit 35.3 % (41.0-53.0); Hemoglobin 12.1 g/dL (13.5-17.5); Lymphocytes # (auto) 1.6 10 ^3/uL (0.4-5.4); Lymphocytes % (auto) 18.1 % (10.0-50.0); Mean Corpuscular Hemoglobin 31.1 pg (28.0-32.0); Mean Corpuscular Hgb Conc. 34.4 g/dL (32.0-36.0); Mean Corpuscular Volume 90.4 fL (80.0-100.0); Monocytes % (auto) 11.1 % (0.0-12.0); Neutrophils % (auto) 69.4 % (37.0-80.0); Platelet Count (auto) 334 10^3/uL (140-450); Red Cell Distribution Width 15.1 % (11.8-14.3); White Blood Cell 8.6 10^3/uL (4.4-10.8)
[2020-10-24] MEDS: guaiFENesin 200 MG/10 ML UD PO PRN ×4 (06:38→21:17)
[2020-10-24 06:50] LABS: Potassium 3.5 mmol/L (3.5-5.1)
[2020-10-24 06:58] LABS: BUN/Creatinine Ratio 26.7; Calcium 9.4 mg/dL (8.5-10.1)
[2020-10-24 08:00] VITALS: BP 122/85
[2020-10-24] MEDS: cefTRIAXone 1GM/50ML D5W 50 ML IV SCH (09:55)
[2020-10-24] MEDS: POTASSIUM CHL 20 Meq TABLET PO SCH ×2 (11:20→21:20)
[2020-10-24] MEDS: MULTIPLE VITAMIN TAB PO SCH (11:20)
[2020-10-24] MEDS: DOXYCYCLINE 100 MG TAB/CAP PO SCH ×2 (11:20→21:19)
[2020-10-24] MEDS: CHOLECALCIFEROL (VITD3) 2,000 UNIT CAP/TAB PO SCH (11:20)
[2020-10-24] MEDS: ALPRAZolam 0.5 MG TAB PO SCH ×3 (11:20→21:19)
[2020-10-24] MEDS: ASCORBIC ACID 1,000 MG TAB PO SCH (11:20)
[2020-10-24] MEDS: APIXABAN 5 MG TAB PO SCH ×2 (11:20→21:20)
[2020-10-24] MEDS: LACTULOSE 20Gm/30ML SOLN PO SCH (11:20)
[2020-10-24] MEDS: ZINC SULFATE 220mg CAP or TAB PO SCH (11:20)
[2020-10-24 15:55] VITALS: BP 128/79
[2020-10-25] VITALS: BP 120/80
[2020-10-25] MEDS: LORazepam 0.5 MG TAB PO PRN (02:24)
[2020-10-25] MEDS: guaiFENesin 200 MG/10 ML UD PO PRN ×4 (02:25→23:45)
[2020-10-25] MEDS: FUROSEMIDE 40 MG/4 ML VIAL IV SCH ×2 (06:41→18:01)
[2020-10-25] MEDS: SODIUM CHLOR 0.9% PF (SALINE LOCK) 10ML VIAL/SYR IV SCH ×3 (06:42→22:12)
[2020-10-25] MEDS: MORPHINE SULF INJ 2 MG/ML SYRINGE 1ML IV PRN ×4 (06:42→22:33)
[2020-10-25] MEDS: ALPRAZolam 0.5 MG TAB PO SCH ×3 (06:43→22:13)
[2020-10-25 07:12] LABS: Basophils # (auto) 0.1 10 ^3/uL (0-0.2); Basophils % (auto) 0.7 % (0.0-2.0); Eosinophils # (auto) 0.9 10 ^3/uL (0-0.8); Eosinophils % (auto) 7.8 % (0.0-7.0); Hematocrit 33.2 % (41.0-53.0); Hemoglobin 11.4 g/dL (13.5-17.5); Lymphocytes # (auto) 2.3 10 ^3/uL (0.4-5.4); Lymphocytes % (auto) 20.5 % (10.0-50.0); Mean Corpuscular Hgb Conc. 34.2 g/dL (32.0-36.0); Mean Corpuscular Volume 90.7 fL (80.0-100.0); Monocytes # (auto) 1.1 10 ^3/uL (0-1.3); Monocytes % (auto) 9.6 % (0.0-12.0); Neutrophils # (auto) 6.9 10 ^3/uL (1.6-8.6); Neutrophils % (auto) 61.4 % (37.0-80.0); Platelet Count (auto) 321 10^3/uL (140-450); Red Blood Cells 3.66 10^6/uL (4.5-5.90); White Blood Cell 11.2 10^3/uL (4.4-10.8)
[2020-10-25 07:20] LABS: Calcium 9.4 mg/dL (8.5-10.1); Potassium 3.3 mmol/L (3.5-5.1)
[2020-10-25] MEDS: cefTRIAXone 1GM/50ML D5W 50 ML IV SCH (09:00)
[2020-10-25] MEDS: BUDESONIDE (INHALATION) 0.5 MG/2 ML NEB NEB SCH ×2 (10:00→22:00)
[2020-10-25] MEDS: LACTULOSE 20Gm/30ML SOLN PO SCH (10:09)
[2020-10-25] MEDS: ZINC SULFATE 220mg CAP or TAB PO SCH (10:12)
[2020-10-25] MEDS: POTASSIUM CHL 20 Meq TABLET PO SCH ×2 (10:13→22:13)
[2020-10-25] MEDS: APIXABAN 5 MG TAB PO SCH ×2 (10:13→22:13)
[2020-10-25] MEDS: DexAMETHasone 4 MG TAB PO SCH (10:13)
[2020-10-25] MEDS: DOXYCYCLINE 100 MG TAB/CAP PO SCH ×2 (10:14→22:13)
[2020-10-25] MEDS: CHOLECALCIFEROL (VITD3) 2,000 UNIT CAP/TAB PO SCH (10:14)
[2020-10-25] MEDS: MULTIPLE VITAMIN TAB PO SCH (10:14)
[2020-10-25] MEDS: ASCORBIC ACID 1,000 MG TAB PO SCH (10:14)
[2020-10-25 15:57] VITALS: BP 128/80
[2020-10-25] MEDS: ONDANSETRON HCL 4 MG/2 ML VIAL IV PRN (20:48)
[2020-10-26] VITALS: BP 144/97
[2020-10-26] MEDS: guaiFENesin 200 MG/10 ML UD PO PRN ×4 (04:18→21:46)
[2020-10-26] MEDS: MORPHINE SULF INJ 2 MG/ML SYRINGE 1ML IV PRN ×3 (04:18→23:26)
[2020-10-26] MEDS: LORazepam 0.5 MG TAB PO PRN (05:09)
[2020-10-26 05:59] LABS: Basophils # (auto) 0 10 ^3/uL (0-0.2); Basophils % (auto) 0.4 % (0.0-2.0); Eosinophils # (auto) 0.2 10 ^3/uL (0-0.8); Eosinophils % (auto) 1.7 % (0.0-7.0); Hematocrit 34.6 % (41.0-53.0); Hemoglobin 11.7 g/dL (13.5-17.5); Lymphocytes # (auto) 1.9 10 ^3/uL (0.4-5.4); Lymphocytes % (auto) 19.4 % (10.0-50.0); Mean Corpuscular Hemoglobin 30.8 pg (28.0-32.0); Mean Corpuscular Hgb Conc. 33.9 g/dL (32.0-36.0); Mean Corpuscular Volume 90.8 fL (80.0-100.0); Monocytes # (auto) 1.1 10 ^3/uL (0-1.3); Monocytes % (auto) 11.8 % (0.0-12.0); Neutrophils # (auto) 6.4 10 ^3/uL (1.6-8.6); Neutrophils % (auto) 66.7 % (37.0-80.0); Nucleated Red Blood Cells % 0.1 %; Platelet Count (auto) 343 10^3/uL (140-450); Red Blood Cells 3.81 10^6/uL (4.5-5.90); Red Cell Distribution Width 15.3 % (11.8-14.3); White Blood Cell 9.6 10^3/uL (4.4-10.8)
[2020-10-26] MEDS: ALPRAZolam 0.5 MG TAB PO SCH ×3 (06:00→21:44)
[2020-10-26] MEDS: FUROSEMIDE 40 MG/4 ML VIAL IV SCH ×2 (06:07→18:21)
[2020-10-26] MEDS: SODIUM CHLOR 0.9% PF (SALINE LOCK) 10ML VIAL/SYR IV SCH ×3 (06:07→21:44)
[2020-10-26] MEDS: ALBUTEROL SULF 2.5 MG/0.5ML(0.5%) NEB SOLN NEB PRN ×2 (07:16→18:50)
[2020-10-26] MEDS: BUDESONIDE (INHALATION) 0.5 MG/2 ML NEB NEB SCH ×2 (07:16→18:50)
[2020-10-26 08:00] VITALS: BP 133/81
[2020-10-26] MEDS: cefTRIAXone 1GM/50ML D5W 50 ML IV SCH (09:07)
[2020-10-26] MEDS: LACTULOSE 20Gm/30ML SOLN PO SCH (09:08)
[2020-10-26] MEDS: DOXYCYCLINE 100 MG TAB/CAP PO SCH ×2 (09:10→21:44)
[2020-10-26] MEDS: ZINC SULFATE 220mg CAP or TAB PO SCH (09:11)
[2020-10-26] MEDS: MULTIPLE VITAMIN TAB PO SCH (09:11)
[2020-10-26] MEDS: POTASSIUM CHL 20 Meq TABLET PO SCH ×2 (09:11→21:44)
[2020-10-26] MEDS: APIXABAN 5 MG TAB PO SCH ×2 (09:12→21:44)
[2020-10-26] MEDS: ASCORBIC ACID 1,000 MG TAB PO SCH (09:12)
[2020-10-26] MEDS: CHOLECALCIFEROL (VITD3) 2,000 UNIT CAP/TAB PO SCH (09:12)
[2020-10-26] MEDS: HYDROcodone-ACET 5/325MG TAB PO PRN (11:54)
[2020-10-26 16:00] VITALS: BP 142/76
[2020-10-26 23:58] VITALS: BP 140/89
[2020-10-27] MEDS: MORPHINE SULF INJ 2 MG/ML SYRINGE 1ML IV PRN ×4 (03:25→21:15)
[2020-10-27] MEDS: guaiFENesin 200 MG/10 ML UD PO PRN ×4 (03:25→22:18)
[2020-10-27] MEDS: SODIUM CHLOR 0.9% PF (SALINE LOCK) 10ML VIAL/SYR IV SCH ×3 (05:24→21:15)
[2020-10-27] MEDS: FUROSEMIDE 40 MG/4 ML VIAL IV SCH ×2 (05:24→17:39)
[2020-10-27] MEDS: ALPRAZolam 0.5 MG TAB PO SCH ×3 (05:24→21:14)
[2020-10-27] MEDS: HYDROcodone-ACET 5/325MG TAB PO PRN (06:28)
[2020-10-27] MEDS: BUDESONIDE (INHALATION) 0.5 MG/2 ML NEB NEB SCH ×2 (06:40→22:00)
[2020-10-27] MEDS: ALBUTEROL SULF 2.5 MG/0.5ML(0.5%) NEB SOLN NEB PRN (06:40)
[2020-10-27 07:32] LABS: Basophils # (auto) 0.1 10 ^3/uL (0-0.2); Basophils % (auto) 0.6 % (0.0-2.0); Eosinophils # (auto) 0.9 10 ^3/uL (0-0.8); Eosinophils % (auto) 7.6 % (0.0-7.0); Hematocrit 35.3 % (41.0-53.0); Hemoglobin 12.1 g/dL (13.5-17.5); Lymphocytes # (auto) 2.2 10 ^3/uL (0.4-5.4); Lymphocytes % (auto) 18.5 % (10.0-50.0); Mean Corpuscular Hgb Conc. 34.2 g/dL (32.0-36.0); Mean Corpuscular Volume 90.4 fL (80.0-100.0); Monocytes % (auto) 8.6 % (0.0-12.0); Neutrophils # (auto) 7.7 10 ^3/uL (1.6-8.6); Neutrophils % (auto) 64.7 % (37.0-80.0); Nucleated Red Blood Cells % 0.1 %; Platelet Count (auto) 348 10^3/uL (140-450); Red Blood Cells 3.91 10^6/uL (4.5-5.90); Red Cell Distribution Width 15.2 % (11.8-14.3); White Blood Cell 11.9 10^3/uL (4.4-10.8)
[2020-10-27 08:06] VITALS: BP 135/80
[2020-10-27] MEDS: cefTRIAXone 1GM/50ML D5W 50 ML IV SCH (09:00)
[2020-10-27] MEDS: LACTULOSE 20Gm/30ML SOLN PO SCH (09:01)
[2020-10-27] MEDS: ZINC SULFATE 220mg CAP or TAB PO SCH (09:02)
[2020-10-27] MEDS: MULTIPLE VITAMIN TAB PO SCH (09:02)
[2020-10-27] MEDS: APIXABAN 5 MG TAB PO SCH ×2 (09:02→21:13)
[2020-10-27] MEDS: POTASSIUM CHL 20 Meq TABLET PO SCH ×2 (09:05→21:13)
[2020-10-27] MEDS: DOXYCYCLINE 100 MG TAB/CAP PO SCH ×2 (09:05→21:14)
[2020-10-27] MEDS: ASCORBIC ACID 1,000 MG TAB PO SCH (09:06)
[2020-10-27] MEDS: CHOLECALCIFEROL (VITD3) 2,000 UNIT CAP/TAB PO SCH (09:08)
[2020-10-27] MEDS: DexAMETHasone 4 MG TAB PO SCH (09:09)
[2020-10-27] MEDS: THROAT LOZENGES(CEPASTAT) MT PRN ×4 (11:06→21:14)
[2020-10-27 16:00] VITALS: BP 116/76
[2020-10-27] MEDS: DOCUSATE SOD 100 MG CAP PO SCH (23:00)
[2020-10-28 00:19] VITALS: BP 113/83
[2020-10-28] MEDS: guaiFENesin 200 MG/10 ML UD PO PRN ×4 (03:55→21:58)
[2020-10-28] MEDS: MORPHINE SULF INJ 2 MG/ML SYRINGE 1ML IV PRN ×3 (03:56→21:44)
[2020-10-28 05:00] VITALS: BP 125/76
[2020-10-28] MEDS: SODIUM CHLOR 0.9% PF (SALINE LOCK) 10ML VIAL/SYR IV SCH ×3 (05:34→21:56)
[2020-10-28] MEDS: ALPRAZolam 0.5 MG TAB PO SCH ×3 (05:34→21:58)
[2020-10-28] MEDS: THROAT LOZENGES(CEPASTAT) MT PRN ×3 (05:35→21:57)
[2020-10-28] MEDS: FUROSEMIDE 40 MG/4 ML VIAL IV SCH ×2 (06:12→17:13)
[2020-10-28] MEDS: BUDESONIDE (INHALATION) 0.5 MG/2 ML NEB NEB SCH ×2 (06:30→20:08)
[2020-10-28] MEDS: ALBUTEROL SULF 2.5 MG/0.5ML(0.5%) NEB SOLN NEB PRN ×2 (06:30→20:08)
[2020-10-28 07:25] LABS: Basophils # (auto) 0 10 ^3/uL (0-0.2); Basophils % (auto) 0.4 % (0.0-2.0); Eosinophils # (auto) 0.1 10 ^3/uL (0-0.8); Hematocrit 33.1 % (41.0-53.0); Hemoglobin 11.4 g/dL (13.5-17.5); Lymphocytes # (auto) 1.8 10 ^3/uL (0.4-5.4); Lymphocytes % (auto) 18.9 % (10.0-50.0); Mean Corpuscular Hemoglobin 30.9 pg (28.0-32.0); Mean Corpuscular Hgb Conc. 34.4 g/dL (32.0-36.0); Mean Corpuscular Volume 89.9 fL (80.0-100.0); Monocytes % (auto) 11.2 % (0.0-12.0); Neutrophils # (auto) 6.4 10 ^3/uL (1.6-8.6); Neutrophils % (auto) 68.5 % (37.0-80.0); Nucleated Red Blood Cells % 0.1 %; Platelet Count (auto) 348 10^3/uL (140-450); Red Blood Cells 3.69 10^6/uL (4.5-5.90); Red Cell Distribution Width 15.1 % (11.8-14.3); White Blood Cell 9.3 10^3/uL (4.4-10.8)
[2020-10-28] MEDS: cefTRIAXone 1GM/50ML D5W 50 ML IV SCH (08:23)
[2020-10-28 08:50] VITALS: BP 121/76
[2020-10-28] MEDS: POTASSIUM CHL 20 Meq TABLET PO SCH ×2 (09:40→21:58)
[2020-10-28] MEDS: APIXABAN 5 MG TAB PO SCH ×2 (09:40→21:57)
[2020-10-28] MEDS: ZINC SULFATE 220mg CAP or TAB PO SCH (09:40)
[2020-10-28] MEDS: DOCUSATE SOD 100 MG CAP PO SCH ×2 (09:40→21:57)
[2020-10-28] MEDS: CHOLECALCIFEROL (VITD3) 2,000 UNIT CAP/TAB PO SCH (09:41)
[2020-10-28] MEDS: MULTIPLE VITAMIN TAB PO SCH (09:41)
[2020-10-28] MEDS: ASCORBIC ACID 1,000 MG TAB PO SCH (09:41)
[2020-10-28] MEDS: DOXYCYCLINE 100 MG TAB/CAP PO SCH ×2 (09:41→21:58)
[2020-10-28] MEDS: LACTULOSE 20Gm/30ML SOLN PO SCH (09:42)
[2020-10-28] MEDS: ONDANSETRON HCL 4 MG/2 ML VIAL IV PRN (11:00)
[2020-10-28 13:00] VITALS: BP 121/71
[2020-10-28] MEDS: HYDROcodone-ACET 5/325MG TAB PO PRN (14:57)
[2020-10-28 17:00] VITALS: BP 129/87
[2020-10-28 20:00] VITALS: BP 140/78
[2020-10-29] MEDS: MORPHINE SULF INJ 2 MG/ML SYRINGE 1ML IV PRN ×3 (03:26→21:40)
[2020-10-29] MEDS: guaiFENesin 200 MG/10 ML UD PO PRN ×3 (03:28→21:40)
[2020-10-29 05:12] VITALS: BP 105/69
[2020-10-29] MEDS: SODIUM CHLOR 0.9% PF (SALINE LOCK) 10ML VIAL/SYR IV SCH ×3 (06:00→22:01)
[2020-10-29] MEDS: ALPRAZolam 0.5 MG TAB PO SCH ×3 (06:00→22:01)
[2020-10-29] MEDS: FUROSEMIDE 40 MG/4 ML VIAL IV SCH ×2 (06:00→17:32)
[2020-10-29] MEDS: BUDESONIDE (INHALATION) 0.5 MG/2 ML NEB NEB SCH ×2 (07:36→19:53)
[2020-10-29 09:00] VITALS: BP 115/76
[2020-10-29] MEDS: LACTULOSE 20Gm/30ML SOLN PO SCH (09:19)
[2020-10-29] MEDS: DOCUSATE SOD 100 MG CAP PO SCH ×2 (09:20→22:01)
[2020-10-29] MEDS: POTASSIUM CHL 20 Meq TABLET PO SCH ×2 (09:20→22:01)
[2020-10-29] MEDS: CHOLECALCIFEROL (VITD3) 2,000 UNIT CAP/TAB PO SCH (09:20)
[2020-10-29] MEDS: cefTRIAXone 1GM/50ML D5W 50 ML IV SCH (09:20)
[2020-10-29] MEDS: DexAMETHasone 4 MG TAB PO SCH (09:21)
[2020-10-29] MEDS: HYDROcodone-ACET 5/325MG TAB PO PRN ×2 (09:21→17:33)
[2020-10-29] MEDS: ZINC SULFATE 220mg CAP or TAB PO SCH (09:21)
[2020-10-29] MEDS: ASCORBIC ACID 1,000 MG TAB PO SCH (09:21)
[2020-10-29] MEDS: APIXABAN 5 MG TAB PO SCH ×2 (09:21→22:01)
[2020-10-29] MEDS: MULTIPLE VITAMIN TAB PO SCH (09:21)
[2020-10-29] MEDS: DOXYCYCLINE 100 MG TAB/CAP PO SCH (09:21)
[2020-10-29 13:00] VITALS: BP 125/71
[2020-10-29 16:45] VITALS: BP 145/81
[2020-10-29] MEDS: ALBUTEROL SULF 2.5 MG/0.5ML(0.5%) NEB SOLN NEB PRN (19:53)
[2020-10-29 20:00] VITALS: BP 132/80
[2020-10-30] MEDS: THROAT LOZENGES(CEPASTAT) MT PRN (02:15)
[2020-10-30] MEDS: MORPHINE SULF INJ 2 MG/ML SYRINGE 1ML IV PRN ×4 (02:48→21:46)
[2020-10-30] MEDS: guaiFENesin 200 MG/10 ML UD PO PRN ×2 (03:39→21:56)
[2020-10-30 05:00] VITALS: BP 107/70
[2020-10-30] MEDS: ALPRAZolam 0.5 MG TAB PO SCH ×3 (05:45→21:45)
[2020-10-30] MEDS: FUROSEMIDE 40 MG/4 ML VIAL IV SCH ×2 (05:45→17:27)
[2020-10-30] MEDS: SODIUM CHLOR 0.9% PF (SALINE LOCK) 10ML VIAL/SYR IV SCH ×3 (05:45→22:12)
[2020-10-30] MEDS: ALBUTEROL SULF 2.5 MG/0.5ML(0.5%) NEB SOLN NEB PRN ×4 (07:36→19:33)
[2020-10-30] MEDS: BUDESONIDE (INHALATION) 0.5 MG/2 ML NEB NEB SCH ×2 (07:36→19:33)
[2020-10-30 08:39] VITALS: BP 113/79
[2020-10-30] MEDS: DOCUSATE SOD 100 MG CAP PO SCH ×2 (09:29→21:45)
[2020-10-30] MEDS: LACTULOSE 20Gm/30ML SOLN PO SCH (09:29)
[2020-10-30] MEDS: APIXABAN 5 MG TAB PO SCH ×2 (09:30→21:44)
[2020-10-30] MEDS: CHOLECALCIFEROL (VITD3) 2,000 UNIT CAP/TAB PO SCH (09:30)
[2020-10-30] MEDS: ASCORBIC ACID 1,000 MG TAB PO SCH (09:30)
[2020-10-30] MEDS: ZINC SULFATE 220mg CAP or TAB PO SCH (09:30)
[2020-10-30] MEDS: POTASSIUM CHL 20 Meq TABLET PO SCH ×2 (09:30→21:45)
[2020-10-30] MEDS: MULTIPLE VITAMIN TAB PO SCH (09:30)
[2020-10-30 13:00] VITALS: BP 127/69
[2020-10-30] MEDS: HYDROcodone-ACET 5/325MG TAB PO PRN (14:27)
[2020-10-30 16:51] VITALS: BP 124/67
[2020-10-30 20:00] VITALS: BP 129/83
[2020-10-30] MEDS: ONDANSETRON HCL 4 MG/2 ML VIAL IV PRN (21:56)
[2020-10-31] MEDS: MORPHINE SULF INJ 2 MG/ML SYRINGE 1ML IV PRN ×3 (03:31→16:59)
[2020-10-31] MEDS: guaiFENesin 200 MG/10 ML UD PO PRN ×3 (03:31→20:42)
[2020-10-31 05:13] VITALS: BP 121/78
[2020-10-31] MEDS: FUROSEMIDE 40 MG/4 ML VIAL IV SCH ×2 (05:24→18:08)
[2020-10-31] MEDS: ALPRAZolam 0.5 MG TAB PO SCH ×3 (05:25→22:16)
[2020-10-31] MEDS: SODIUM CHLOR 0.9% PF (SALINE LOCK) 10ML VIAL/SYR IV SCH ×2 (05:25→14:10)
[2020-10-31] MEDS: HYDROcodone-ACET 5/325MG TAB PO PRN ×2 (05:39→14:11)
[2020-10-31] MEDS: ALBUTEROL SULF 2.5 MG/0.5ML(0.5%) NEB SOLN NEB PRN ×2 (07:10→18:46)
[2020-10-31] MEDS: BUDESONIDE (INHALATION) 0.5 MG/2 ML NEB NEB SCH ×2 (07:10→18:46)
[2020-10-31 08:30] VITALS: BP 109/63
[2020-10-31] MEDS: LACTULOSE 20Gm/30ML SOLN PO SCH (09:59)
[2020-10-31] MEDS: APIXABAN 5 MG TAB PO SCH ×2 (09:59→22:17)
[2020-10-31] MEDS: DOCUSATE SOD 100 MG CAP PO SCH ×2 (09:59→22:16)
[2020-10-31] MEDS: CHOLECALCIFEROL (VITD3) 2,000 UNIT CAP/TAB PO SCH (10:00)
[2020-10-31] MEDS: POTASSIUM CHL 20 Meq TABLET PO SCH ×2 (10:00→22:17)
[2020-10-31] MEDS: MULTIPLE VITAMIN TAB PO SCH (10:00)
[2020-10-31 13:01] VITALS: BP 111/72
[2020-10-31] MEDS: THROAT LOZENGES(CEPASTAT) MT PRN (14:11)
[2020-10-31 17:00] VITALS: BP 130/78
[2020-10-31 20:00] VITALS: BP 105/67
[2020-10-31] MEDS: ONDANSETRON HCL 4 MG/2 ML VIAL IV PRN (20:42)
[2020-10-31] MEDS: ZOLPIDEM TARTRATE 5 MG TAB PO PRN (22:17)
[2020-10-31] MEDS: ACETAMINOPHEN 500 MG TAB PO PRN (22:40)
[2020-11-01] VITALS (7 sets, daily range): BP systolic 108–134; BP diastolic 68–84
[2020-11-01] MEDS: MORPHINE SULF INJ 2 MG/ML SYRINGE 1ML IV PRN ×5 (00:07→21:09)
[2020-11-01] MEDS: LORazepam 0.5 MG TAB PO PRN (02:34)
[2020-11-01] MEDS: guaiFENesin 200 MG/10 ML UD PO PRN ×4 (02:35→22:06)
[2020-11-01] MEDS: HYDROcodone-ACET 5/325MG TAB PO PRN (03:30)
[2020-11-01] MEDS: ALPRAZolam 0.5 MG TAB PO SCH ×3 (06:26→21:08)
[2020-11-01] MEDS: FUROSEMIDE 40 MG/4 ML VIAL IV SCH ×2 (06:27→17:17)
[2020-11-01] MEDS: SODIUM CHLOR 0.9% PF (SALINE LOCK) 10ML VIAL/SYR IV SCH ×4 (06:27→21:07)
[2020-11-01] MEDS: ALBUTEROL SULF 2.5 MG/0.5ML(0.5%) NEB SOLN NEB PRN ×2 (06:40→20:21)
[2020-11-01] MEDS: BUDESONIDE (INHALATION) 0.5 MG/2 ML NEB NEB SCH ×2 (06:40→20:21)
[2020-11-01] MEDS: LACTULOSE 20Gm/30ML SOLN PO SCH (09:21)
[2020-11-01] MEDS: DOCUSATE SOD 100 MG CAP PO SCH ×2 (09:21→21:07)
[2020-11-01] MEDS: MULTIPLE VITAMIN TAB PO SCH (09:43)
[2020-11-01] MEDS: APIXABAN 5 MG TAB PO SCH ×2 (09:43→21:07)
[2020-11-01] MEDS: POTASSIUM CHL 20 Meq TABLET PO SCH ×2 (09:43→21:07)
[2020-11-01] MEDS: DexAMETHasone 4 MG TAB PO SCH (09:43)
[2020-11-01] MEDS: CHOLECALCIFEROL (VITD3) 2,000 UNIT CAP/TAB PO SCH (09:44)
[2020-11-01] MEDS: THROAT LOZENGES(CEPASTAT) MT PRN (10:53)
[2020-11-01] MEDS: ZOLPIDEM TARTRATE 5 MG TAB PO PRN (22:55)
[2020-11-02] VITALS (8 sets, daily range): BP systolic 122–142; BP diastolic 71–84
[2020-11-02] MEDS: LORazepam 0.5 MG TAB PO PRN (02:21)
[2020-11-02] MEDS: guaiFENesin 200 MG/10 ML UD PO PRN ×3 (03:26→23:03)
[2020-11-02] MEDS: ONDANSETRON HCL 4 MG/2 ML VIAL IV PRN (03:26)
[2020-11-02] MEDS: MORPHINE SULF INJ 2 MG/ML SYRINGE 1ML IV PRN ×4 (03:26→22:54)
[2020-11-02] MEDS: FUROSEMIDE 40 MG/4 ML VIAL IV SCH ×2 (06:06→18:00)
[2020-11-02] MEDS: SODIUM CHLOR 0.9% PF (SALINE LOCK) 10ML VIAL/SYR IV SCH ×3 (06:06→21:48)
[2020-11-02] MEDS: ALPRAZolam 0.5 MG TAB PO SCH ×3 (06:07→21:48)
[2020-11-02] MEDS: ALBUTEROL SULF 2.5 MG/0.5ML(0.5%) NEB SOLN NEB PRN ×2 (06:20→21:09)
[2020-11-02] MEDS: BUDESONIDE (INHALATION) 0.5 MG/2 ML NEB NEB SCH ×2 (06:20→21:09)
[2020-11-02] MEDS: APIXABAN 5 MG TAB PO SCH ×2 (09:48→21:47)
[2020-11-02] MEDS: POTASSIUM CHL 20 Meq TABLET PO SCH ×2 (09:48→21:47)
[2020-11-02] MEDS: CHOLECALCIFEROL (VITD3) 2,000 UNIT CAP/TAB PO SCH (09:48)
[2020-11-02] MEDS: MULTIPLE VITAMIN TAB PO SCH (09:48)
[2020-11-02] MEDS: DOCUSATE SOD 100 MG CAP PO SCH ×2 (09:58→21:47)
[2020-11-02] MEDS: LACTULOSE 20Gm/30ML SOLN PO SCH (09:58)
[2020-11-02] MEDS: THROAT LOZENGES(CEPASTAT) MT PRN ×3 (10:49→19:54)
[2020-11-02] MEDS: ACETAMINOPHEN 500 MG TAB PO PRN (17:57)
[2020-11-02] MEDS: HYDROcodone-ACET 5/325MG TAB PO PRN (19:54)
[2020-11-02] MEDS: FLUTICASONE PROP NASAL SPR 0.05 % (50MCG) 16GM EACHNOSTRI SCH (22:33)
[2020-11-03] MEDS: LORazepam 0.5 MG TAB PO PRN (02:28)
[2020-11-03] MEDS: guaiFENesin 200 MG/10 ML UD PO PRN ×4 (03:16→22:59)
[2020-11-03] MEDS: MORPHINE SULF INJ 2 MG/ML SYRINGE 1ML IV PRN ×3 (03:16→14:07)
[2020-11-03 05:00] VITALS: BP 126/75
[2020-11-03] MEDS: FUROSEMIDE 40 MG/4 ML VIAL IV SCH (05:41)
[2020-11-03] MEDS: SODIUM CHLOR 0.9% PF (SALINE LOCK) 10ML VIAL/SYR IV SCH ×3 (05:50→21:02)
[2020-11-03] MEDS: ALPRAZolam 0.5 MG TAB PO SCH ×3 (06:03→21:05)
[2020-11-03] MEDS: ACETAMINOPHEN 500 MG TAB PO PRN (06:38)
[2020-11-03] MEDS: ALBUTEROL SULF 2.5 MG/0.5ML(0.5%) NEB SOLN NEB PRN ×3 (07:12→20:30)
[2020-11-03] MEDS: BUDESONIDE (INHALATION) 0.5 MG/2 ML NEB NEB SCH ×2 (07:12→20:30)
[2020-11-03 09:02] VITALS: BP 116/70
[2020-11-03] MEDS: DOCUSATE SOD 100 MG CAP PO SCH ×2 (09:20→21:04)
[2020-11-03] MEDS: LACTULOSE 20Gm/30ML SOLN PO SCH ×2 (09:20→21:02)
[2020-11-03] MEDS: APIXABAN 5 MG TAB PO SCH ×2 (09:20→21:05)
[2020-11-03] MEDS: MULTIPLE VITAMIN TAB PO SCH (09:20)
[2020-11-03] MEDS: CHOLECALCIFEROL (VITD3) 2,000 UNIT CAP/TAB PO SCH (09:20)
[2020-11-03] MEDS: POTASSIUM CHL 20 Meq TABLET PO SCH (09:20)
[2020-11-03] MEDS: FLUTICASONE PROP NASAL SPR 0.05 % (50MCG) 16GM EACHNOSTRI SCH ×2 (09:20→21:02)
[2020-11-03] MEDS: THROAT LOZENGES(CEPASTAT) MT PRN ×2 (09:21→14:08)
[2020-11-03 12:33] LABS: Basophils # (auto) 0.1 10 ^3/uL (0-0.2); Basophils % (auto) 0.6 % (0.0-2.0); Eosinophils # (auto) 0.8 10 ^3/uL (0-0.8); Eosinophils % (auto) 8.1 % (0.0-7.0); Hematocrit 32.2 % (41.0-53.0); Hemoglobin 10.8 g/dL (13.5-17.5); Lymphocytes # (auto) 1.4 10 ^3/uL (0.4-5.4); Mean Corpuscular Hemoglobin 30.3 pg (28.0-32.0); Mean Corpuscular Hgb Conc. 33.4 g/dL (32.0-36.0); Mean Corpuscular Volume 90.6 fL (80.0-100.0); Monocytes # (auto) 0.9 10 ^3/uL (0-1.3); Monocytes % (auto) 9.2 % (0.0-12.0); Neutrophils # (auto) 6.8 10 ^3/uL (1.6-8.6); Neutrophils % (auto) 68.1 % (37.0-80.0); Nucleated Red Blood Cells % 0.1 %; Platelet Count (auto) 303 10^3/uL (140-450); Red Blood Cells 3.56 10^6/uL (4.5-5.90); Red Cell Distribution Width 15.7 % (11.8-14.3)
[2020-11-03 12:34] VITALS: BP 126/76
[2020-11-03 12:35] LABS: BUN/Creatinine Ratio 23.8; Calcium 9.3 mg/dL (8.5-10.1); Potassium 3.8 mmol/L (3.5-5.1)
[2020-11-03] MEDS ORDERED: LACTULOSE 20Gm/30ML SOLN PO ONE (12:45)
[2020-11-03 16:37] VITALS: BP 125/74
[2020-11-03] MEDS: HYDROcodone-ACET 5/325MG TAB PO PRN (19:58)
[2020-11-03 20:00] VITALS: BP 138/89
[2020-11-03 22:00] VITALS: BP 138/89
[2020-11-03] MEDS: ZOLPIDEM TARTRATE 5 MG TAB PO PRN (22:59)
[2020-11-04] MEDS: MORPHINE SULF INJ 2 MG/ML SYRINGE 1ML IV PRN ×5 (01:08→23:11)
[2020-11-04] MEDS: LORazepam 0.5 MG TAB PO PRN ×2 (03:40→13:35)
[2020-11-04] MEDS: guaiFENesin 200 MG/10 ML UD PO PRN ×3 (03:44→23:12)
[2020-11-04 05:00] VITALS: BP 132/73
[2020-11-04] MEDS: THROAT LOZENGES(CEPASTAT) MT PRN ×6 (05:12→21:09)
[2020-11-04] MEDS: SODIUM CHLOR 0.9% PF (SALINE LOCK) 10ML VIAL/SYR IV SCH ×3 (06:10→21:08)
[2020-11-04] MEDS: ALPRAZolam 0.5 MG TAB PO SCH ×3 (06:34→21:09)
[2020-11-04] MEDS: BUDESONIDE (INHALATION) 0.5 MG/2 ML NEB NEB SCH ×2 (06:40→17:05)
[2020-11-04 08:40] VITALS: BP 139/92
[2020-11-04] MEDS: DOCUSATE SOD 100 MG CAP PO SCH ×2 (10:00→21:08)
[2020-11-04] MEDS: FUROSEMIDE 40 MG/4 ML VIAL IV SCH (10:06)
[2020-11-04] MEDS: FLUTICASONE PROP NASAL SPR 0.05 % (50MCG) 16GM EACHNOSTRI SCH ×2 (10:06→21:07)
[2020-11-04] MEDS: LACTULOSE 20Gm/30ML SOLN PO SCH ×2 (10:07→21:08)
[2020-11-04] MEDS: DexAMETHasone 4 MG TAB PO SCH (10:07)
[2020-11-04] MEDS: APIXABAN 5 MG TAB PO SCH ×2 (10:07→21:09)
[2020-11-04] MEDS: POTASSIUM CHL 20 Meq TABLET PO SCH (10:08)
[2020-11-04] MEDS: MULTIPLE VITAMIN TAB PO SCH (10:08)
[2020-11-04] MEDS: CHOLECALCIFEROL (VITD3) 2,000 UNIT CAP/TAB PO SCH (10:09)
[2020-11-04 16:59] VITALS: BP 130/76
[2020-11-04] MEDS: HYDROcodone-ACET 5/325MG TAB PO PRN (17:00)
[2020-11-04] MEDS: ALBUTEROL SULF 2.5 MG/0.5ML(0.5%) NEB SOLN NEB PRN (19:59)
[2020-11-04 20:00] VITALS: BP 115/71
[2020-11-04] MEDS: ZOLPIDEM TARTRATE 5 MG TAB PO PRN (23:12)
[2020-11-05] VITALS (7 sets, daily range): BP systolic 107–134; BP diastolic 47–86
[2020-11-05] MEDS: SODIUM CHLOR 0.9% PF (SALINE LOCK) 10ML VIAL/SYR IV SCH ×3 (04:32→21:00)
[2020-11-05] MEDS: ALPRAZolam 0.5 MG TAB PO SCH ×3 (04:33→21:02)
[2020-11-05] MEDS: guaiFENesin 200 MG/10 ML UD PO PRN ×3 (04:33→23:03)
[2020-11-05] MEDS: MORPHINE SULF INJ 2 MG/ML SYRINGE 1ML IV PRN ×5 (04:33→21:21)
[2020-11-05] MEDS: BUDESONIDE (INHALATION) 0.5 MG/2 ML NEB NEB SCH ×2 (08:30→20:53)
[2020-11-05] MEDS: ALBUTEROL SULF 2.5 MG/0.5ML(0.5%) NEB SOLN NEB PRN ×2 (08:30→21:23)
[2020-11-05] MEDS: FLUTICASONE PROP NASAL SPR 0.05 % (50MCG) 16GM EACHNOSTRI SCH ×2 (09:00→21:00)
[2020-11-05] MEDS: FUROSEMIDE 40 MG/4 ML VIAL IV SCH (09:01)
[2020-11-05] MEDS: LACTULOSE 20Gm/30ML SOLN PO SCH ×2 (09:01→21:01)
[2020-11-05] MEDS: POTASSIUM CHL 20 Meq TABLET PO SCH (09:02)
[2020-11-05] MEDS: DOCUSATE SOD 100 MG CAP PO SCH ×2 (09:02→21:01)
[2020-11-05] MEDS: MULTIPLE VITAMIN TAB PO SCH (09:02)
[2020-11-05] MEDS: CHOLECALCIFEROL (VITD3) 2,000 UNIT CAP/TAB PO SCH (09:03)
[2020-11-05] MEDS: APIXABAN 5 MG TAB PO SCH ×2 (09:13→21:01)
[2020-11-05] MEDS: ZOLPIDEM TARTRATE 5 MG TAB PO PRN (22:58)
[2020-11-06] MEDS: MORPHINE SULF INJ 2 MG/ML SYRINGE 1ML IV PRN ×4 (02:53→20:15)
[2020-11-06] MEDS: HYDROcodone-ACET 5/325MG TAB PO PRN ×2 (04:59→16:31)
[2020-11-06 05:00] VITALS: BP 127/69
[2020-11-06] MEDS: ALPRAZolam 0.5 MG TAB PO SCH ×3 (05:00→21:36)
[2020-11-06] MEDS: SODIUM CHLOR 0.9% PF (SALINE LOCK) 10ML VIAL/SYR IV SCH ×3 (05:00→21:34)
[2020-11-06] MEDS: ALBUTEROL SULF 2.5 MG/0.5ML(0.5%) NEB SOLN NEB PRN ×2 (06:40→21:29)
[2020-11-06] MEDS: guaiFENesin 200 MG/10 ML UD PO PRN ×3 (08:49→23:25)
[2020-11-06] MEDS: DOCUSATE SOD 100 MG CAP PO SCH ×3 (08:50→21:57)
[2020-11-06] MEDS: FUROSEMIDE 40 MG/4 ML VIAL IV SCH (08:50)
[2020-11-06] MEDS: APIXABAN 5 MG TAB PO SCH ×2 (08:51→21:36)
[2020-11-06] MEDS: POTASSIUM CHL 20 Meq TABLET PO SCH (08:51)
[2020-11-06] MEDS: MULTIPLE VITAMIN TAB PO SCH (08:51)
[2020-11-06] MEDS: FLUTICASONE PROP NASAL SPR 0.05 % (50MCG) 16GM EACHNOSTRI SCH ×2 (08:52→21:35)
[2020-11-06 08:55] VITALS: BP 133/79
[2020-11-06] MEDS: LACTULOSE 20Gm/30ML SOLN PO SCH ×2 (08:58→21:35)
[2020-11-06 13:00] VITALS: BP 133/80
[2020-11-06 16:39] VITALS: BP 150/87
[2020-11-06] MEDS: BUDESONIDE (INHALATION) 0.5 MG/2 ML NEB NEB SCH (21:29)
[2020-11-06 22:00] VITALS: BP 140/88
[2020-11-06] MEDS: ONDANSETRON HCL 4 MG/2 ML VIAL IV PRN (22:31)
[2020-11-06] MEDS: ZOLPIDEM TARTRATE 5 MG TAB PO PRN (23:24)
[2020-11-07] MEDS: MORPHINE SULF INJ 2 MG/ML SYRINGE 1ML IV PRN ×5 (00:39→22:27)
[2020-11-07] MEDS: LORazepam 0.5 MG TAB PO PRN (02:54)
[2020-11-07] MEDS: HYDROcodone-ACET 5/325MG TAB PO PRN ×2 (03:19→13:16)
[2020-11-07 05:00] VITALS: BP 105/81
[2020-11-07] MEDS: SODIUM CHLOR 0.9% PF (SALINE LOCK) 10ML VIAL/SYR IV SCH ×3 (05:38→21:06)
[2020-11-07] MEDS: ALPRAZolam 0.5 MG TAB PO SCH ×3 (06:33→21:07)
[2020-11-07] MEDS: guaiFENesin 200 MG/10 ML UD PO PRN ×2 (06:38→15:41)
[2020-11-07] MEDS: ACETAMINOPHEN 500 MG TAB PO PRN (06:43)
[2020-11-07 08:53] VITALS: BP 129/76
[2020-11-07] MEDS: BUDESONIDE (INHALATION) 0.5 MG/2 ML NEB NEB SCH ×2 (09:15→22:04)
[2020-11-07] MEDS: ALBUTEROL SULF 2.5 MG/0.5ML(0.5%) NEB SOLN NEB PRN ×3 (09:15→22:04)
[2020-11-07] MEDS: DexAMETHasone 4 MG TAB PO SCH (09:34)
[2020-11-07] MEDS: APIXABAN 5 MG TAB PO SCH ×2 (09:34→21:07)
[2020-11-07] MEDS: FLUTICASONE PROP NASAL SPR 0.05 % (50MCG) 16GM EACHNOSTRI SCH ×2 (09:34→21:07)
[2020-11-07] MEDS: DOCUSATE SOD 100 MG CAP PO SCH ×2 (09:34→21:07)
[2020-11-07] MEDS: LACTULOSE 20Gm/30ML SOLN PO SCH ×2 (09:34→21:07)
[2020-11-07] MEDS: POTASSIUM CHL 20 Meq TABLET PO SCH (09:35)
[2020-11-07] MEDS: MULTIPLE VITAMIN TAB PO SCH (09:35)
[2020-11-07] MEDS: FUROSEMIDE 40 MG/4 ML VIAL IV SCH (09:35)
[2020-11-07 13:00] VITALS: BP 128/73
[2020-11-07 17:00] VITALS: BP_SYST 136; BP_SYST 142; BP_DIAS 68; BP_DIAS 78
[2020-11-07 20:30] VITALS: BP 142/68
[2020-11-07 22:26] VITALS: BP 121/78
[2020-11-07] MEDS: ZOLPIDEM TARTRATE 5 MG TAB PO PRN (23:45)
[2020-11-08] MEDS: guaiFENesin 200 MG/10 ML UD PO PRN ×3 (00:51→23:11)
[2020-11-08] MEDS: MORPHINE SULF INJ 2 MG/ML SYRINGE 1ML IV PRN ×5 (02:25→21:41)
[2020-11-08] MEDS: LORazepam 0.5 MG TAB PO PRN (03:52)
[2020-11-08 05:15] VITALS: BP 129/70
[2020-11-08] MEDS: ACETAMINOPHEN 500 MG TAB PO PRN (05:22)
[2020-11-08] MEDS: SODIUM CHLOR 0.9% PF (SALINE LOCK) 10ML VIAL/SYR IV SCH ×3 (05:23→21:42)
[2020-11-08] MEDS: ALPRAZolam 0.5 MG TAB PO SCH ×3 (05:23→21:40)
[2020-11-08] MEDS: BUDESONIDE (INHALATION) 0.5 MG/2 ML NEB NEB SCH ×2 (07:30→21:57)
[2020-11-08] MEDS: ALBUTEROL SULF 2.5 MG/0.5ML(0.5%) NEB SOLN NEB PRN ×2 (07:30→21:57)
[2020-11-08 09:00] VITALS: BP 114/64
[2020-11-08] MEDS: FLUTICASONE PROP NASAL SPR 0.05 % (50MCG) 16GM EACHNOSTRI SCH ×2 (09:12→21:42)
[2020-11-08] MEDS: LACTULOSE 20Gm/30ML SOLN PO SCH ×2 (09:12→21:40)
[2020-11-08] MEDS: APIXABAN 5 MG TAB PO SCH ×2 (09:12→21:41)
[2020-11-08] MEDS: FUROSEMIDE 40 MG/4 ML VIAL IV SCH (09:12)
[2020-11-08] MEDS: DOCUSATE SOD 100 MG CAP PO SCH ×2 (09:12→21:41)
[2020-11-08] MEDS: HYDROcodone-ACET 5/325MG TAB PO PRN (09:13)
[2020-11-08] MEDS: MULTIPLE VITAMIN TAB PO SCH (09:13)
[2020-11-08] MEDS: POTASSIUM CHL 20 Meq TABLET PO SCH (09:13)
[2020-11-08 13:00] VITALS: BP 127/76
[2020-11-08 17:00] VITALS: BP 124/72
[2020-11-08] MEDS ORDERED: levoFLOXacin 750MG 150 ML IV ONE (18:00)
[2020-11-08 20:00] VITALS: BP 134/78
[2020-11-09] VITALS (7 sets, daily range): BP systolic 113–140; BP diastolic 72–94
[2020-11-09] MEDS: ZOLPIDEM TARTRATE 5 MG TAB PO PRN (00:15)
[2020-11-09] MEDS: ACETAMINOPHEN 500 MG TAB PO PRN (00:15)
[2020-11-09] MEDS: MORPHINE SULF INJ 2 MG/ML SYRINGE 1ML IV PRN ×4 (01:42→22:30)
[2020-11-09] MEDS: ALBUTEROL SULF 2.5 MG/0.5ML(0.5%) NEB SOLN NEB PRN ×2 (05:50→21:40)
[2020-11-09] MEDS: BUDESONIDE (INHALATION) 0.5 MG/2 ML NEB NEB SCH ×2 (05:50→21:40)
[2020-11-09] MEDS: ALPRAZolam 0.5 MG TAB PO SCH ×3 (06:02→23:43)
[2020-11-09] MEDS: SODIUM CHLOR 0.9% PF (SALINE LOCK) 10ML VIAL/SYR IV SCH ×3 (06:02→22:00)
[2020-11-09 07:03] LABS: Basophils # (auto) 0.1 10 ^3/uL (0-0.2); Basophils % (auto) 0.6 % (0.0-2.0); Eosinophils # (auto) 1.4 10 ^3/uL (0-0.8); Eosinophils % (auto) 13.5 % (0.0-7.0); Hematocrit 30.9 % (41.0-53.0); Hemoglobin 10.3 g/dL (13.5-17.5); Lymphocytes # (auto) 1.8 10 ^3/uL (0.4-5.4); Lymphocytes % (auto) 17.4 % (10.0-50.0); Mean Corpuscular Hemoglobin 30.6 pg (28.0-32.0); Mean Corpuscular Hgb Conc. 33.5 g/dL (32.0-36.0); Mean Corpuscular Volume 91.4 fL (80.0-100.0); Monocytes # (auto) 1.2 10 ^3/uL (0-1.3); Monocytes % (auto) 11.1 % (0.0-12.0); Neutrophils % (auto) 57.4 % (37.0-80.0); Platelet Count (auto) 279 10^3/uL (140-450); Red Blood Cells 3.38 10^6/uL (4.5-5.90); Red Cell Distribution Width 15.4 % (11.8-14.3); White Blood Cell 10.5 10^3/uL (4.4-10.8)
[2020-11-09 07:31] LABS: Potassium 3.9 mmol/L (3.5-5.1)
[2020-11-09 07:41] LABS: BUN/Creatinine Ratio 22.4; Calcium 9.4 mg/dL (8.5-10.1)
[2020-11-09] MEDS: LACTULOSE 20Gm/30ML SOLN PO SCH ×2 (10:27→23:42)
[2020-11-09] MEDS: FUROSEMIDE 40 MG/4 ML VIAL IV SCH (10:27)
[2020-11-09] MEDS: HYDROcodone-ACET 5/325MG TAB PO PRN (10:28)
[2020-11-09] MEDS: MULTIPLE VITAMIN TAB PO SCH (10:28)
[2020-11-09] MEDS: POTASSIUM CHL 20 Meq TABLET PO SCH (10:28)
[2020-11-09] MEDS: DOCUSATE SOD 100 MG CAP PO SCH ×2 (10:28→23:43)
[2020-11-09] MEDS: APIXABAN 5 MG TAB PO SCH ×2 (10:28→22:00)
[2020-11-09] MEDS: levoFLOXacin 750MG 150 ML IV SCH (10:28)
[2020-11-09] MEDS: FLUTICASONE PROP NASAL SPR 0.05 % (50MCG) 16GM EACHNOSTRI SCH ×2 (10:29→23:40)
[2020-11-09] MEDS ORDERED: CITALOPRAM HYDROBR 20 MG TAB PO ONE (13:30)
[2020-11-09] MEDS: guaiFENesin 200 MG/10 ML UD PO PRN (17:04)
[2020-11-09] MEDS: LORazepam 0.5 MG TAB PO PRN (18:09)
[2020-11-10] VITALS (7 sets, daily range): BP systolic 111–151; BP diastolic 75–92
[2020-11-10] MEDS: ZOLPIDEM TARTRATE 5 MG TAB PO PRN
[2020-11-10] MEDS: MORPHINE SULF INJ 2 MG/ML SYRINGE 1ML IV PRN ×3 (04:16→22:15)
[2020-11-10] MEDS: SODIUM CHLOR 0.9% PF (SALINE LOCK) 10ML VIAL/SYR IV SCH ×3 (06:41→22:00)
[2020-11-10] MEDS: ALPRAZolam 0.5 MG TAB PO SCH ×3 (06:42→22:00)
[2020-11-10] MEDS: ALBUTEROL SULF 2.5 MG/0.5ML(0.5%) NEB SOLN NEB PRN ×3 (06:46→20:23)
[2020-11-10] MEDS: BUDESONIDE (INHALATION) 0.5 MG/2 ML NEB NEB SCH ×3 (06:46→20:23)
[2020-11-10] MEDS: APIXABAN 5 MG TAB PO SCH ×2 (09:48→22:00)
[2020-11-10] MEDS: DOCUSATE SOD 100 MG CAP PO SCH ×2 (09:48→22:00)
[2020-11-10] MEDS: POTASSIUM CHL 20 Meq TABLET PO SCH (09:49)
[2020-11-10] MEDS: CITALOPRAM HYDROBR 20 MG TAB PO SCH (09:49)
[2020-11-10] MEDS: LACTULOSE 20Gm/30ML SOLN PO SCH ×2 (09:49→22:00)
[2020-11-10] MEDS: MULTIPLE VITAMIN TAB PO SCH (09:49)
[2020-11-10] MEDS: levoFLOXacin 750MG 150 ML IV SCH (09:50)
[2020-11-10] MEDS: FUROSEMIDE 40 MG/4 ML VIAL IV SCH (09:50)
[2020-11-10] MEDS ORDERED: DexAMETHasone 4 MG TAB PO SCH (10:00)
[2020-11-10] MEDS: FLUTICASONE PROP NASAL SPR 0.05 % (50MCG) 16GM EACHNOSTRI SCH ×2 (10:00→22:00)
[2020-11-10] MEDS: guaiFENesin 200 MG/10 ML UD PO PRN ×2 (14:18→20:31)
[2020-11-10] MEDS: HYDROcodone-ACET 5/325MG TAB PO PRN (14:33)
[2020-11-11] MEDS: ACETAMINOPHEN 500 MG TAB PO PRN (01:14)
[2020-11-11] MEDS: MORPHINE SULF INJ 2 MG/ML SYRINGE 1ML IV PRN ×3 (04:14→22:10)
[2020-11-11] MEDS: HYDROcodone-ACET 5/325MG TAB PO PRN ×2 (04:15→16:51)
[2020-11-11] MEDS: guaiFENesin 200 MG/10 ML UD PO PRN ×2 (04:16→22:10)
[2020-11-11 05:00] VITALS: BP 117/83
[2020-11-11] MEDS: SODIUM CHLOR 0.9% PF (SALINE LOCK) 10ML VIAL/SYR IV SCH ×3 (06:00→22:00)
[2020-11-11] MEDS: ALPRAZolam 0.5 MG TAB PO SCH ×3 (06:00→22:00)
[2020-11-11] MEDS: BUDESONIDE (INHALATION) 0.5 MG/2 ML NEB NEB SCH ×2 (07:47→20:28)
[2020-11-11] MEDS: ALBUTEROL SULF 2.5 MG/0.5ML(0.5%) NEB SOLN NEB PRN ×2 (07:47→20:53)
[2020-11-11 08:30] VITALS: BP 119/74
[2020-11-11] MEDS: LACTULOSE 20Gm/30ML SOLN PO SCH ×2 (10:00→22:00)
[2020-11-11] MEDS: FLUTICASONE PROP NASAL SPR 0.05 % (50MCG) 16GM EACHNOSTRI SCH ×2 (10:10→22:00)
[2020-11-11] MEDS: levoFLOXacin 750MG 150 ML IV SCH (10:11)
[2020-11-11] MEDS: FUROSEMIDE 40 MG/4 ML VIAL IV SCH (10:11)
[2020-11-11] MEDS: CITALOPRAM HYDROBR 20 MG TAB PO SCH (10:12)
[2020-11-11] MEDS: DOCUSATE SOD 100 MG CAP PO SCH ×2 (10:12→22:00)
[2020-11-11] MEDS: APIXABAN 5 MG TAB PO SCH ×2 (10:12→22:00)
[2020-11-11] MEDS: POTASSIUM CHL 20 Meq TABLET PO SCH (10:13)
[2020-11-11] MEDS: MULTIPLE VITAMIN TAB PO SCH (10:13)
[2020-11-11 12:30] VITALS: BP 121/84
[2020-11-11 16:30] VITALS: BP 130/62
[2020-11-11 20:00] VITALS: BP 123/74
[2020-11-11 22:00] VITALS: BP 123/74
[2020-11-12] MEDS: ZOLPIDEM TARTRATE 5 MG TAB PO PRN
[2020-11-12] MEDS: MORPHINE SULF INJ 2 MG/ML SYRINGE 1ML IV PRN ×4 (02:10→22:47)
[2020-11-12] MEDS: guaiFENesin 200 MG/10 ML UD PO PRN ×3 (02:10→22:47)
[2020-11-12 05:00] VITALS: BP 112/81
[2020-11-12] MEDS: SODIUM CHLOR 0.9% PF (SALINE LOCK) 10ML VIAL/SYR IV SCH ×3 (06:00→22:12)
[2020-11-12] MEDS: BUDESONIDE (INHALATION) 0.5 MG/2 ML NEB NEB SCH ×2 (06:23→20:03)
[2020-11-12] MEDS: ALBUTEROL SULF 2.5 MG/0.5ML(0.5%) NEB SOLN NEB PRN ×2 (06:23→14:30)
[2020-11-12 09:00] VITALS: BP 124/87
[2020-11-12] MEDS: FLUTICASONE PROP NASAL SPR 0.05 % (50MCG) 16GM EACHNOSTRI SCH ×2 (09:41→22:00)
[2020-11-12] MEDS: CITALOPRAM HYDROBR 20 MG TAB PO SCH (09:45)
[2020-11-12] MEDS: FUROSEMIDE 40 MG/4 ML VIAL IV SCH (09:45)
[2020-11-12] MEDS: DOCUSATE SOD 100 MG CAP PO SCH ×2 (09:45→22:11)
[2020-11-12] MEDS: levoFLOXacin 750MG 150 ML IV SCH (09:45)
[2020-11-12] MEDS: LACTULOSE 20Gm/30ML SOLN PO SCH ×2 (09:45→22:11)
[2020-11-12] MEDS: POTASSIUM CHL 20 Meq TABLET PO SCH (09:46)
[2020-11-12] MEDS: APIXABAN 5 MG TAB PO SCH ×2 (09:46→22:11)
[2020-11-12] MEDS: MULTIPLE VITAMIN TAB PO SCH (09:46)
[2020-11-12] MEDS: ALPRAZolam 0.5 MG TAB PO SCH ×2 (09:46→22:11)
[2020-11-12 13:00] VITALS: BP 130/87
[2020-11-12 17:00] VITALS: BP 134/82
[2020-11-12] MEDS: HYDROcodone-ACET 5/325MG TAB PO PRN (17:31)
[2020-11-12 22:00] VITALS: BP 132/75
[2020-11-13] VITALS (8 sets, daily range): BP systolic 123–159; BP diastolic 71–97
[2020-11-13] MEDS: ZOLPIDEM TARTRATE 5 MG TAB PO PRN (00:23)
[2020-11-13] MEDS: guaiFENesin 200 MG/10 ML UD PO PRN ×3 (03:52→21:10)
[2020-11-13] MEDS: MORPHINE SULF INJ 2 MG/ML SYRINGE 1ML IV PRN ×4 (03:52→22:00)
[2020-11-13] MEDS: LORazepam 0.5 MG TAB PO PRN (05:42)
[2020-11-13] MEDS: SODIUM CHLOR 0.9% PF (SALINE LOCK) 10ML VIAL/SYR IV SCH ×3 (06:08→21:48)
[2020-11-13] MEDS: ALBUTEROL SULF 2.5 MG/0.5ML(0.5%) NEB SOLN NEB PRN ×2 (07:02→22:09)
[2020-11-13] MEDS: BUDESONIDE (INHALATION) 0.5 MG/2 ML NEB NEB SCH ×2 (07:03→22:09)
[2020-11-13] MEDS: ONDANSETRON HCL 4 MG/2 ML VIAL IV PRN ×3 (09:40→21:10)
[2020-11-13] MEDS: levoFLOXacin 750MG 150 ML IV SCH (09:43)
[2020-11-13] MEDS: FUROSEMIDE 40 MG/4 ML VIAL IV SCH (09:43)
[2020-11-13] MEDS: DOCUSATE SOD 100 MG CAP PO SCH ×2 (09:44→21:48)
[2020-11-13] MEDS: CITALOPRAM HYDROBR 20 MG TAB PO SCH (09:44)
[2020-11-13] MEDS: POTASSIUM CHL 20 Meq TABLET PO SCH (09:44)
[2020-11-13] MEDS: LACTULOSE 20Gm/30ML SOLN PO SCH ×2 (09:44→21:48)
[2020-11-13] MEDS: MULTIPLE VITAMIN TAB PO SCH (09:44)
[2020-11-13] MEDS: ALPRAZolam 0.5 MG TAB PO SCH ×2 (09:44→21:49)
[2020-11-13] MEDS: APIXABAN 5 MG TAB PO SCH ×2 (09:44→21:48)
[2020-11-13] MEDS: FLUTICASONE PROP NASAL SPR 0.05 % (50MCG) 16GM EACHNOSTRI SCH ×2 (09:45→22:00)
[2020-11-14] MEDS: MORPHINE SULF INJ 2 MG/ML SYRINGE 1ML IV PRN ×4 (03:04→21:56)
[2020-11-14] MEDS: guaiFENesin 200 MG/10 ML UD PO PRN ×4 (03:05→21:55)
[2020-11-14] MEDS: SODIUM CHLOR 0.9% PF (SALINE LOCK) 10ML VIAL/SYR IV SCH ×3 (04:34→21:57)
[2020-11-14 05:00] VITALS: BP 132/80
[2020-11-14] MEDS: LORazepam 0.5 MG TAB PO PRN (05:10)
[2020-11-14] MEDS: ACETAMINOPHEN 500 MG TAB PO PRN (05:39)
[2020-11-14] MEDS: BUDESONIDE (INHALATION) 0.5 MG/2 ML NEB NEB SCH ×2 (08:04→21:53)
[2020-11-14] MEDS: ALBUTEROL SULF 2.5 MG/0.5ML(0.5%) NEB SOLN NEB PRN ×3 (08:04→21:53)
[2020-11-14 08:59] VITALS: BP 141/85
[2020-11-14] MEDS: FLUTICASONE PROP NASAL SPR 0.05 % (50MCG) 16GM EACHNOSTRI SCH ×2 (10:50→21:25)
[2020-11-14] MEDS: LACTULOSE 20Gm/30ML SOLN PO SCH ×2 (10:51→21:40)
[2020-11-14] MEDS: CITALOPRAM HYDROBR 20 MG TAB PO SCH (10:51)
[2020-11-14] MEDS: DOCUSATE SOD 100 MG CAP PO SCH ×2 (10:53→21:23)
[2020-11-14] MEDS: POTASSIUM CHL 20 Meq TABLET PO SCH (10:53)
[2020-11-14] MEDS: APIXABAN 5 MG TAB PO SCH ×2 (10:53→21:23)
[2020-11-14] MEDS: levoFLOXacin 250 MG TAB PO SCH (10:54)
[2020-11-14] MEDS: MULTIPLE VITAMIN TAB PO SCH (10:54)
[2020-11-14] MEDS: ALPRAZolam 0.5 MG TAB PO SCH ×2 (10:54→21:23)
[2020-11-14] MEDS: FUROSEMIDE 40 MG TAB PO SCH (10:54)
[2020-11-14 11:01] LABS: BUN/Creatinine Ratio 20.8; Calcium 9.5 mg/dL (8.5-10.1); Potassium 3.6 mmol/L (3.5-5.1)
[2020-11-14 12:40] VITALS: BP 145/86
[2020-11-14 17:00] VITALS: BP 137/79
[2020-11-14] MEDS: ONDANSETRON HCL 4 MG/2 ML VIAL IV PRN (18:02)
[2020-11-14] MEDS: HYDROcodone-ACET 5/325MG TAB PO PRN (18:58)
[2020-11-14 20:00] VITALS: BP 124/86
[2020-11-14] MEDS: ZOLPIDEM TARTRATE 5 MG TAB PO PRN ×2 (23:55)
[2020-11-15] MEDS: guaiFENesin 200 MG/10 ML UD PO PRN ×2 (03:08→17:53)
[2020-11-15] MEDS: MORPHINE SULF INJ 2 MG/ML SYRINGE 1ML IV PRN (03:09)
[2020-11-15 05:00] VITALS: BP 131/78
[2020-11-15 05:11] VITALS: BP 131/78
[2020-11-15] MEDS: LORazepam 0.5 MG TAB PO PRN ×2 (05:59→17:52)
[2020-11-15] MEDS: SODIUM CHLOR 0.9% PF (SALINE LOCK) 10ML VIAL/SYR IV SCH ×2 (06:02→14:06)
[2020-11-15] MEDS: ALBUTEROL SULF 2.5 MG/0.5ML(0.5%) NEB SOLN NEB PRN (07:05)
[2020-11-15] MEDS: BUDESONIDE (INHALATION) 0.5 MG/2 ML NEB NEB SCH (07:05)
[2020-11-15 09:01] VITALS: BP 136/84
[2020-11-15] MEDS: LACTULOSE 20Gm/30ML SOLN PO SCH (10:27)
[2020-11-15] MEDS: CITALOPRAM HYDROBR 20 MG TAB PO SCH (10:27)
[2020-11-15] MEDS: DOCUSATE SOD 100 MG CAP PO SCH (10:27)
[2020-11-15] MEDS: FLUTICASONE PROP NASAL SPR 0.05 % (50MCG) 16GM EACHNOSTRI SCH (10:27)
[2020-11-15] MEDS: APIXABAN 5 MG TAB PO SCH (10:28)
[2020-11-15] MEDS: MULTIPLE VITAMIN TAB PO SCH (10:28)
[2020-11-15] MEDS: levoFLOXacin 250 MG TAB PO SCH (10:28)
[2020-11-15] MEDS: FUROSEMIDE 40 MG TAB PO SCH (10:28)
[2020-11-15] MEDS: POTASSIUM CHL 20 Meq TABLET PO SCH (10:28)
[2020-11-15] MEDS: ALPRAZolam 0.5 MG TAB PO SCH (10:29)
[2020-11-15 12:55] VITALS: BP 129/78
[2020-11-15] MEDS: HYDROcodone-ACET 5/325MG TAB PO PRN (16:25)
[2020-11-15 17:29] VITALS: BP 126/83
== END 2020-11-15 20:30 | DRG 177 ==
LOC: ER 15:30 → OVERFLOW 15:31 → TELE-WESTW 09-21 13:17 → TELE-E-ADS 11-13 17:28
PROVIDERS: ADMIT Nurse Practitioner Family; ATTEND Internal Medicine
PROC: XW033E5 Introduction of Remdesivir Anti-infective into Peripheral Vein, Percutaneous Approach, New Technology Group 5 (ICD-10-PCS; 2020-09-20)
PROC: XW033H5 Introduction of Tocilizumab into Peripheral Vein, Percutaneous Approach, New Technology Group 5 (ICD-10-PCS; 2020-09-20)
PROC: 5A09557 Assistance with Respiratory Ventilation, Greater than 96 Consecutive Hours, Continuous Positive Airway Pressure (ICD-10-PCS; 2020-09-21)
PROC: XW13325 Transfusion of Convalescent Plasma (Nonautologous) into Peripheral Vein, Percutaneous Approach, New Technology Group 5 (ICD-10-PCS; principal; 2020-09-23)
PROC: 5A09457 Assistance with Respiratory Ventilation, 24-96 Consecutive Hours, Continuous Positive Airway Pressure (ICD-10-PCS; 2020-10-19)
PROC: 5A09457 Assistance with Respiratory Ventilation, 24-96 Consecutive Hours, Continuous Positive Airway Pressure (ICD-10-PCS; 2020-10-22)
PROC: 5A09357 Assistance with Respiratory Ventilation, Less than 24 Consecutive Hours, Continuous Positive Airway Pressure (ICD-10-PCS; 2020-10-26)
PROC: 5A09357 Assistance with Respiratory Ventilation, Less than 24 Consecutive Hours, Continuous Positive Airway Pressure (ICD-10-PCS; 2020-10-28)
PROC: 5A09357 Assistance with Respiratory Ventilation, Less than 24 Consecutive Hours, Continuous Positive Airway Pressure (ICD-10-PCS; 2020-10-29)
PROC: 5A09357 Assistance with Respiratory Ventilation, Less than 24 Consecutive Hours, Continuous Positive Airway Pressure (ICD-10-PCS; 2020-11-03)
PROC: 5A09357 Assistance with Respiratory Ventilation, Less than 24 Consecutive Hours, Continuous Positive Airway Pressure (ICD-10-PCS; 2020-11-04)
PROC: 5A09357 Assistance with Respiratory Ventilation, Less than 24 Consecutive Hours, Continuous Positive Airway Pressure (ICD-10-PCS; 2020-11-05)
PROC: 5A09357 Assistance with Respiratory Ventilation, Less than 24 Consecutive Hours, Continuous Positive Airway Pressure (ICD-10-PCS; 2020-11-07)
DX: U07.1 COVID-19 (principal); J12.82 Pneumonia due to coronavirus disease 2019; J96.01 Acute respiratory failure with hypoxia; Z68.42 Body mass index [BMI] 45.0-49.9, adult; F41.9 Anxiety disorder, unspecified; D89.839 Cytokine release syndrome, grade unspecified; E66.01 Morbid (severe) obesity due to excess calories; E87.6 Hypokalemia; F17.210 Nicotine dependence, cigarettes, uncomplicated; J84.10 Pulmonary fibrosis, unspecified; K59.00 Constipation, unspecified; Z79.51 Long term (current) use of inhaled steroids; Z79.899 Other long term (current) drug therapy; Z82.49 Family history of ischemic heart disease and other diseases of the circulatory system; Z99.81 Dependence on supplemental oxygen; R73.9 Hyperglycemia, unspecified; Z90.49 Acquired absence of other specified parts of digestive tract; G47.30 Sleep apnea, unspecified
CPT/HCPCS: 36415; 36600; 71045; 73630; 80048; 80053; 82728; 82805; 83036; 83605; 83615; 83735; 84100; 84443; 84484; 85025; 85379; 85610; 85730; 86141; 86850; 86900; 86901; 87040; 87070; 87077; 87186; 87205; 87426; 93005; 93306; 93970; 94640; 94660; 94668; 96365; 96367; 96375; 96376; 97110; 97116; 97530; G0378; J0330; J0696; J1100; J1956; J2405; J3490